=== PATIENT | female | born 1950 ===

== ENCOUNTER 2016-08-28 07:03 | Day surgery (SDC) | payer MEDICARE ==
[2016-08-22 13:15] VITALS: BMI 31.5
[2016-08-28] MEDS ORDERED: Sodium Chloride 0.9% 1,000 ML IV SCH (08:15)
[2016-08-28] MEDS ORDERED: Propofol 10 mg/ml Inj (20 ML) ONE (08:53)
[2016-08-28 10:30] VITALS: BP 136/65; PULSE 53; RESP 18; TEMP 97.6; O2SAT 99
== END 2016-08-28 11:21 | disposition home or self-care (01) ==
LOC: ENDO 07:03
PROVIDERS: ATTEND Specialist
DX: K29.50 Unspecified chronic gastritis without bleeding (principal); B96.81 Helicobacter pylori [H. pylori] as the cause of diseases classified elsewhere; K57.30 Diverticulosis of large intestine without perforation or abscess without bleeding; K64.8 Other hemorrhoids; K44.9 Diaphragmatic hernia without obstruction or gangrene
CPT/HCPCS: 43239; 45378; 88305; 88342; J2001; J2704; J3010; J7040 ×2

== ENCOUNTER 2017-02-27 15:24 | Emergency (ER) | payer MEDICARE ==
[2017-02-27 15:49] VITALS: BMI 22.6
[2017-02-27] MEDS ORDERED: Sodium Chloride 0.9% 1,000 ML IV STA (16:30)
[2017-02-27] MEDS ORDERED: Morphine 4 mg/ml ISec IVP STA (16:30)
--- NOTE | 2017-02-27 16:36 | ED PDOC ---
Arrival/HPI - General Chief Complaint: Abdominal Pain Time Seen by Provider: 02/27/17 16:29 Historian: Patient - History of Present Illness Narrative History of Present Illness (Text): 02/27/17 16:33 This 66 yo female with pmh dm, htn, hypelipedemia, hypothyroidism, presents to this ED c/o diarrhea x 14 hours. Patient stated she has had multiple watery BM. She feels over ten time. Last BM was in ED. Patient noted nausea and vomiting at the onset of diarrhea. N/V has improved. Patient noted family members had similar symptoms last week. Patient denies sob, cp, urinary symptoms, CROOK, diplopia, dysarthria, or abnormal gait. Time/Duration: Other (see hpi) Context: Home Past Medical History - Provider Review Nursing Documentation Reviewed: Yes - Infectious Disease Hx of Infectious Diseases: None - Reproductive Menopause: Yes - Cardiac Hx Cardiac Disorders: Yes Hx Hypertension: Yes - Pulmonary Hx Respiratory Disorders: No - Neurological Hx Neurological Disorder: No HX Cerebrovascular Accident: Yes (07/20/15) - HEENT Hx HEENT Disorder: No - Renal Hx Renal Disorder: No - Endocrine/Metabolic Hx Diabetes Mellitus Type 2: Yes Hx Hypothyroidism: Yes - Hematological/Oncological Hx Blood Transfusions: No - Integumentary Hx Dermatological Disorder: No - Musculoskeletal/Rheumatological Hx Musculoskeletal Disorders: Yes - Gastrointestinal Hx Gastrointestinal Disorders: No - Genitourinary/Gynecological Hx Genitourinary Disorders: No - Psychiatric Hx Emotional Abuse: No Hx Physical Abuse: No Hx Substance Use: No - Surgical History Hx Cholecystectomy: Yes - Anesthesia Hx Anesthesia: Yes Hx Anesthesia Reactions: No Hx Malignant Hyperthermia: No - Suicidal Assessment Feels Threatened In Home Enviroment: No Family/Social History - Physician Review Nursing Documentation Reviewed: Yes Family/Social History: Other (noncontributory) Smoking Status: Never Smoked Hx Alcohol Use: No Hx Substance Use: No Allergies/Home Meds Allergies/Adverse Reactions: Allergies No Known Allergies Allergy (Verified 02/27/17 15:49) Home Medications: Home Meds Medication Instructions Recorded Confirmed Losartan [Cozaar] 50 mg PO DAILY 07/16/15 02/27/17 Simvastatin 20 mg PO DAILY 11/21/15 02/27/17 Aspirin [Ecotrin] 81 mg PO DAILY 11/23/15 02/27/17 Glyburide [Micronase] 1 mg PO DAILY 11/23/15 02/27/17 MetFORMIN [glucoPHAGE] 1,000 mg PO BID 11/23/15 02/27/17 Levothyroxine [Synthroid] 0.088 mg PO DAILY 08/22/16 02/27/17 Pyridoxine HCl (Vitamin B6) 100 mg PO DAILY 08/22/16 02/27/17 [Vitamin B-6] Zonisamide [Zonegran] 100 mg PO HS 08/22/16 02/27/17 clonazePAM [clonAZEPAM] 0.5 mg PO TID 08/22/16 02/27/17 Review of Systems - Review of Systems Constitutional: Normal. absent: Fatigue, Weight Change, Fevers Eyes: Normal ENT: Normal. absent: Sore Throat Respiratory: Normal. absent: SOB, Cough Cardiovascular: Normal. absent: Chest Pain, Palpitations Gastrointestinal: Abdominal Pain, Diarrhea, Nausea, Vomiting, Other (denies rectal bleeding). absent: Constipation Genitourinary Female: Normal. absent: Dysuria, Frequency, Hematuria Musculoskeletal: Normal. absent: Back Pain, Neck Pain, Myalgias Skin: Normal. absent: Rash Neurological: Normal. absent: Headache, Dizziness, Focal Weakness, Gait Changes , Speech Changes, Facial Droop, Disequilibrium, Seizure Endocrine: Normal Hemo/Lymphatic: Normal Psychiatric: Normal Physical Exam Vital Signs Temp Pulse Resp BP Pulse Ox 02/27/17 20:40 74 18 141/72 97 02/27/17 19:10 81 18 138/71 100 02/27/17 17:47 99.2 F 89 18 142/75 97 02/27/17 15:43 100.5 F H 97 H 20 146/84 97 Temperature: Afebrile Blood Pressure: Normal Pulse: Regular Respiratory Rate: Normal Appearance: Positive for: Well-Appearing, Non-Toxic, Comfortable Pain Distress: None Mental Status: Positive for: Alert and Oriented X 3 - Systems Exam Head: Present: Atraumatic, Normocephalic Pupils: Present: PERRL Extroacular Muscles: Present: EOMI Conjunctiva: Present: Normal Mouth: Present: Moist Mucous Membranes Neck: Present: Normal Range of Motion Respiratory/Chest: Present: Clear to Auscultation, Good Air Exchange. No: Respiratory Distress, Accessory Muscle Use Cardiovascular: Present: Regular Rate and Rhythm, Normal S1, S2. No: Murmurs Abdomen: Present: Normal Bowel Sounds, Scars (from cholecystectomy). No: Tenderness, Distention, Peritoneal Signs, Rebound, Guarding Back: Present: Normal Inspection. No: CVA Tenderness Upper Extremity: Present: Normal Inspection, Normal ROM, NORMAL PULSES. No: Cyanosis, Edema Lower Extremity: Present: Normal Inspection, Normal ROM. No: Edema Neurological: Present: GCS=15, CN II-XII Intact, Speech Normal, Motor Func Grossly Intact, Normal Sensory Function, Normal Cerebellar Funct Skin: Present: Warm, Dry, Normal Color. No: Rashes Psychiatric: Present: Alert, Oriented x 3, Normal Insight, Normal Concentration Medical Decision Making ED Course and Treatment: 02/27/17 20:59 I spoke with Esther Wesley regarding patient complains of diarrhea. We reviewed labs, CT scan imaging result. I told her that DR. Parra requested to be called if patient is discharge , so he could see patient tomorrow morning. I told Dr. Laguerre that patient is feeling better, and patient wishes to be discharged home soon. Patient stated she has an appointment to see Dr. Parra tomorrow morning. I reviewed case with Dr. Dumont ED physician . She reviewed CT scan result, labs, and VS. Patient feels better. She agreed with plan to d/c patient home , and to see her PMD tomorrow morning, and to return to ED if symptoms worsen. She did not recommend ABX at this time till evaluated by Dr. Parra tomorrow. Re-evaluation Time: 21:08 Reassessment Condition: Re-examined, Improved - Lab Interpretations Lab Results: 02/27/17 17:10 02/27/17 17:10 Lab Results 02/27/17 18:45: Influenza Typ A,B (EIA) Negative for flu a/b 02/27/17 17:10: pO2 93 H, VBG pH 7.42, VBG pCO2 41.0, VBG HCO3 26.6, VBG Total CO2 27.9, VBG O2 Sat (Calc) 98.7 H, VBG Base Excess 1.9, VBG Potassium 5.3 H, Sodium 136.0, Chloride 102.0, Glucose 136 H, Lactate 1.7, FiO2 21.0, Venous Blood Potassium 5.3 H 02/27/17 17:10: Sodium 138, Chloride 102, Potassium 3.7, Carbon Dioxide 24, Anion Gap 15, BUN 17, Creatinine 0.7, Est GFR ( Amer) > 60, Est GFR (Non- Af Amer) > 60, Random Glucose 132 H, Calcium 9.0, Total Bilirubin 0.4, AST 26, ALT 30, Alkaline Phosphatase 53, Total Protein 7.0, Albumin 4.2, Globulin 2.8, Albumin/Globulin Ratio 1.5, Lipase 50 02/27/17 17:10: PT 11.4, INR 1.00, APTT 26.0 02/27/17 17:10: WBC 7.3 D, RBC 4.23, Hgb 13.3, Hct 40.8, MCV 96.5, MCH 31.4, MCHC 32.6, RDW 13.4, Plt Count 190, MPV 12.2 H, Gran % 86.0 H, Lymph % (Auto) 10.0 L, [place] % (Auto) 3.1, Eos % (Auto) 0.8 L, Baso % (Auto) 0.1, Gran # 6.30, Lymph # 0.7 L, [place] # 0.2, Eos # 0.1, Baso # 0.01 02/27/17 16:55: Urine Color Yellow, Urine Appearance Sl cloudy, Urine pH 6.0, Ur Specific [place] 1.025, Urine Protein Trace H, Urine Glucose (UA) Negative, Urine Ketones Negative, Urine Blood Negative, Urine Nitrate Negative, Urine Bilirubin Negative, Urine Urobilinogen 0.2, Ur Leukocyte Esterase Trace H, Urine RBC 0 - 2, Urine WBC 1 - 3, Ur Epithelial Cells 3 - 4, Urine Bacteria Small I have reviewed the lab results: Yes Interpretation: No clinic. lab abnormalty - RAD Interpretation Narrative RAD Interpretations (Text): 02/27/17 20:45 [facility] Division of Radiology [address] [address] Tel. no. Patient Name: VICKI GAXIOLA Pt. Address: [address] [place] [address] Rec #: [id number] [place] [address]: Delbert DEE,Marleni Cochran Pt Order Location: ED : 1950 Female Age: 66 Order #: [id number] Reason for exam: abdominal pain CT Scan ABD PELVIS IV CONTRAST ONLY Exam Date: 02/27/17 This imaging exam was performed at [facility] EXAM: CT Abdomen and Pelvis With Intravenous Contrast EXAM DATE/TIME: 02/27/2017 4:31 PM CLINICAL HISTORY: 66 years old, female; Pain; Abdominal pain TECHNIQUE: Axial computed tomography images of the abdomen and pelvis with intravenous contrast. All CT scans at this facility use one or more dose reduction techniques, viz.: automated exposure control; ma/kV adjustment per patient size (including targeted exams where dose is matched to indication; i.e. head); or iterative reconstruction technique. Coronal and sagittal reformatted images were created and reviewed. CONTRAST: 93 mL of OMNI 350 administered intravenously. COMPARISON: CT - CHEST,ABD,PEL W/IV PO CONTRAST 2016-06-14 09:59 FINDINGS: Lower thorax: Heart size is normal. There is minimal dependent atelectasis at the lung bases ABDOMEN: Liver: There is fatty infiltration of the liver. Gallbladder and bile ducts: Gallbladder is absent.There is prominence of the common duct. Pancreas: unremarkable Spleen: unremarkable Adrenals: unremarkable Kidneys and ureters: There is a right renal cyst. Kidneys and ureters are otherwise unremarkable. Stomach and bowel: Stomach is partially distended with air-fluid levels. Rotation is normal. Small bowel is mildly dilated and fluid-filled. There is fluid throughout the small bowel. Terminal ileum is distended with fluid. Normal caliber appendix is filled with air. There is moderate stool and air in the colon. There is sigmoid diverticulosis. Appendix: See stomach and bowel PELVIS: Bladder: Bladder is almost completely empty. There is mild bladder wall thickening Reproductive: Uterus and adnexal structures are unremarkable. ABDOMEN and PELVIS: Intraperitoneal space: There is no free air or free fluid. Bones/joints: There are degenerative changes in the osseus structures. Soft tissues: There is a small fat containing umbilical hernia. Vasculature: There are vascular calcifications. Lymph nodes: There is no pathologic adenopathy. IMPRESSION: Fatty liver, no acute solid visceral abnormality; prominent common duct status post cholecystectomy; mildly distended fluid-filled small bowel suggesting ileus or possible enteritis, no obstruction; no CT findings of appendicitis or diverticulitis; mild bladder wall thickening underdistention versus inflammation Additional nonemergent findings as described above. Dictated By: Martita Simpson MD, MD Radiology Orders: 02/27/17 16:31 ABD & PELVIS IV CONTRAST ONLY [CT] Stat - Medication Orders Current Medication Orders: Discontinued Medications Acetaminophen (Tylenol 325mg Tab) 975 mg PO STAT STA Stop: 02/27/17 16:33 Last Admin: 02/27/17 17:28 Dose: 975 mg MAR Pain/Vitals Document 02/27/17 17:28 SF (Rec: 02/27/17 17:28 [place] [id number] Pain Reassessment Is This A Pain ReAssessment? Yes Sleep Is patient sleeping during reassessment? No Presence of Pain Presence of Pain Yes Famotidine (Pepcid) 20 mg IVP STAT STA Stop: 02/27/17 16:31 Last Admin: 02/27/17 17:28 Dose: 20 mg IVP Administration Document 02/27/17 17:28 SF (Rec: 02/27/17 17:28 SF [id number][place] Charges for Administration # of IVP Administrations 1 Sodium Chloride (Sodium Chloride 0.9%) 1,000 mls @ 1,000 mls/hr IV .Q1H STA Stop: 02/27/17 17:29 Last Admin: 02/27/17 17:28 Dose: 1,000 mls/hr eMAR Start Stop Document 02/27/17 17:28 SF (Rec: 02/27/17 17:28 SF [id number][place] Intravenous Solution Start Date 02/27/17 Start Time 17:28 End Date 02/27/17 End time 18:28 Total Infusion Time 60 Morphine Sulfate (Morphine) 4 mg IVP STAT STA Stop: 02/27/17 16:31 Last Admin: 02/27/17 17:29 Dose: 4 mg MAR Pain Assessment Document 02/27/17 17:29 SF (Rec: 02/27/17 17:29 SF [id number][place] Pain Reassessment Is this a pain reassessment? Yes Sleep Is patient sleeping during reassessment? No Presence of Pain Presence of Pain Yes Description Description Constant IVP Administration Document 02/27/17 17:29 SF (Rec: 02/27/17 17:29 SF [id number][place] Charges for Administration # of IVP Administrations 1 Ondansetron HCl (Zofran Inj) 4 mg IVP STAT STA Stop: 02/27/17 16:31 Last Admin: 02/27/17 17:28 Dose: 4 mg IVP Administration Document 02/27/17 17:28 SF (Rec: 02/27/17 17:28 SF [id number]) Charges for Administration # of IVP Administrations 1 Disposition/Present on Arrival - Present on Arrival Any Indicators Present on Arrival: No History of DVT/PE: No History of Uncontrolled Diabetes: No Urinary Catheter: No History of Decub. Ulcer: No History Surgical Site Infection Following: None - Disposition Have Diagnosis and Disposition been Completed?: Yes Diagnosis: Enteritis, Diarrhea, Abdominal pain Disposition: HOME/ ROUTINE Disposition Time: 21:08 Patient Plan: Discharge Condition: GOOD Discharge Instructions (ExitCare): Acute Diarrhea (ED) Additional Instructions: Call private doctor for follow up visit in 1-2 days. Drink Pedialyte for hydration. Take medication for pain as instructed. Return to emergency if symptoms worsen. Prescriptions: Acetaminophen with Codeine [Tylenol with Codeine #3 Tablet] 1 each PO Q6H PRN # 10 tablet PRN Reason: Pain, Severe (8-10) Famotidine [Pepcid] 40 mg PO DAILY #10 tablet Referrals: Tru Parra MD [Primary Care Provider] - Follow up with primary Forms: [employer] (Tristanian)
[2017-02-27 17:21] LABS: URINE BILIRUBIN NEGATIVE (NEGATIVE); URINE BLOOD NEGATIVE (NEGATIVE); URINE GLUCOSE (UA) NEGATIVE (NEGATIVE); URINE LEUKOCYTE ESTERASE TRACE Leu/uL (NEGATIVE); URINE NITRATE NEGATIVE (NEGATIVE); URINE PROTEIN TRACE mg/dL (<30 mg/dL); URINE UROBILINOGEN 0.2 E.U./dL (<1 E.U./dL)
[2017-02-27 17:32] LABS: URINE APPEARANCE SL CLOUDY (CLEAR); URINE COLOR YELLOW (YELLOW)
[2017-02-27 17:40] LABS: URINE BACTERIA SMALL (NEG); URINE RBC 0 - 2 /hpf (0-2)
[2017-02-27 17:48] VITALS: TEMP 99.2
[2017-02-27 17:57] LABS: BASO # 0.01 K/mm3 (0.0-2.0); BASO % 0.1 % (0.0-3.0); EOS # 0.1 (0.0-0.7); EOS % 0.8 % (1.5-5.0); GRAN # 6.3 (1.4-6.5); HEMOGLOBIN 13.3 g/dL (12.0-16.0); LYMPH # 0.7 (1.2-3.4); MEAN CELL VOLUME 96.5 fl (80.0-105.0); MEAN CORPUSCULAR HEMOGLOBIN 31.4 pg (25.0-35.0); MEAN CORPUSCULAR HGB CONC 32.6 g/dl (31.0-37.0); MEAN PLATELET VOLUME 12.2 fl (7.0-11.0); MONO # 0.2 (0.1-0.6); MONO % 3.1 % (1.0-6.0); RBC 4.23 10^6/uL (3.5-6.1); RED CELL DISTRIBUTION WIDTH 13.4 % (11.5-14.5); WHITE BLOOD COUNT 7.3 10^3/ul (4.5-11.0)
[2017-02-27 17:58] LABS: VENOUS BLOOD GAS BASE EXCESS 1.9 mmol/L (0.0-2.0); VENOUS BLOOD GAS PO2 93 mm/Hg (30-55); VENOUS BLOOD PH 7.42 (7.32-7.43)
[2017-02-27 18:09] LABS: ALB/GLOB RATIO 1.5 (1.1-1.8); ALBUMIN 4.2 g/dL (3.0-4.8); ALT/SGPT 30 U/L (7-56); AST/SGOT 26 U/L (14-36); BLOOD UREA NITROGEN 17 mg/dL (7-21); GFR AFRICAN-AMERICAN > 60; GFR NON-AFRICAN AMERICAN > 60; LIPASE 50 U/L (23-300)
[2017-02-27 18:26] LABS: PROTHROMBIN TIME 11.4 SECONDS (9.4-12.5)
[2017-02-27] MEDS ORDERED: Iohexol 350 MG/100 ML VIAL ONE (19:08)
--- NOTE | 2017-02-27 20:25 | CT ---
EXAM: CT Abdomen and Pelvis With Intravenous Contrast EXAM DATE/TIME: 02/27/2017 4:31 PM CLINICAL HISTORY: 66 years old, female; Pain; Abdominal pain TECHNIQUE: Axial computed tomography images of the abdomen and pelvis with intravenous contrast. All CT scans at this facility use one or more dose reduction techniques, viz.: automated exposure control; ma/kV adjustment per patient size (including targeted exams where dose is matched to indication; i.e. head); or iterative reconstruction technique. Coronal and sagittal reformatted images were created and reviewed. CONTRAST: 93 mL of OMNI 350 administered intravenously. COMPARISON: CT - CHEST,ABD,PEL W/IV PO CONTRAST 2016-06-14 09:59 FINDINGS: Lower thorax: Heart size is normal. There is minimal dependent atelectasis at the lung bases ABDOMEN: Liver: There is fatty infiltration of the liver. Gallbladder and bile ducts: Gallbladder is absent.There is prominence of the common duct. Pancreas: unremarkable Spleen: unremarkable Adrenals: unremarkable Kidneys and ureters: There is a right renal cyst. Kidneys and ureters are otherwise unremarkable. Stomach and bowel: Stomach is partially distended with air-fluid levels. Rotation is normal. Small bowel is mildly dilated and fluid-filled. There is fluid throughout the small bowel. Terminal ileum is distended with fluid. Normal caliber appendix is filled with air. There is moderate stool and air in the colon. There is sigmoid diverticulosis. Appendix: See stomach and bowel PELVIS: Bladder: Bladder is almost completely empty. There is mild bladder wall thickening Reproductive: Uterus and adnexal structures are unremarkable. ABDOMEN and PELVIS: Intraperitoneal space: There is no free air or free fluid. Bones/joints: There are degenerative changes in the osseus structures. Soft tissues: There is a small fat containing umbilical hernia. Vasculature: There are vascular calcifications. Lymph nodes: There is no pathologic adenopathy. IMPRESSION: Fatty liver, no acute solid visceral abnormality; prominent common duct status post cholecystectomy; mildly distended fluid-filled small bowel suggesting ileus or possible enteritis, no obstruction; no CT findings of appendicitis or diverticulitis; mild bladder wall thickening underdistention versus inflammation Additional nonemergent findings as described above.
[2017-02-27 22:03] VITALS: BP 135/70; PULSE 68; RESP 17; O2SAT 98
== END 2017-02-27 21:45 | disposition home or self-care (01) ==
LOC: ED 15:24
DX: K52.9 Noninfective gastroenteritis and colitis, unspecified (principal); E11.9 Type 2 diabetes mellitus without complications; I10 Essential (primary) hypertension; E03.9 Hypothyroidism, unspecified
CPT/HCPCS: 74177; 80053; 81001; 82803; 83690; 85025; 85610; 85730; 87040; 87086; 87804; 96361; 96374; 96375; 99285; J2270; J2405; J7040; Q9967

== ENCOUNTER 2017-03-01 16:16 | Emergency (ER) | payer MEDICARE ==
[2017-03-01 16:17] VITALS: BMI 22.6
[2017-03-01 16:36] VITALS: RESP 18; TEMP 98.4
[2017-03-01] MEDS ORDERED: Sodium Chloride 0.9% 500 ML IV STA (16:51)
[2017-03-01 17:25] LABS: BASO # 0.01 K/mm3 (0.0-2.0); BASO % 0.3 % (0.0-3.0); EOS # 0.1 (0.0-0.7); EOS % 1.3 % (1.5-5.0); GRAN # 2.35 (1.4-6.5); GRAN % 60.3 % (50.0-68.0); HEMOGLOBIN 12.4 g/dL (12.0-16.0); LYMPH % 25.2 % (22.0-35.0); MEAN CORPUSCULAR HEMOGLOBIN 31.2 pg (25.0-35.0); MEAN CORPUSCULAR HGB CONC 31.9 g/dl (31.0-37.0); MEAN PLATELET VOLUME 11.9 fl (7.0-11.0); MONO # 0.5 (0.1-0.6); MONO % 12.9 % (1.0-6.0); RBC 3.97 10^6/uL (3.5-6.1); RED CELL DISTRIBUTION WIDTH 13.2 % (11.5-14.5); WHITE BLOOD COUNT 3.9 10^3/ul (4.5-11.0)
[2017-03-01 17:35] LABS: BLOOD UREA NITROGEN 7 mg/dL (7-21); GFR AFRICAN-AMERICAN > 60; GFR NON-AFRICAN AMERICAN > 60
--- NOTE | 2017-03-01 19:48 | ED PDOC ---
Arrival/HPI - General Chief Complaint: Dizziness/Lightheaded Time Seen by Provider: 03/01/17 16:32 Historian: Patient - History of Present Illness Narrative History of Present Illness (Text): 03/01/17 18:14 A 66 year old female, whose past medical history includes hypertension, diabetes , hyperlipidemia, and hypothyroidism, presents to the emergency department complaining of persistent dizziness for 3-4 days. Patient reports being treated for excessive diarrhea 2 days ago, which has resolved but dizziness persisted. Patient denies any nausea, vomiting, headache, or any other complaints. Also, patient has social history of living at home and does not smoke nor consumes alcohol. No PMD Past Medical History - Provider Review Nursing Documentation Reviewed: Yes - Infectious Disease Hx of Infectious Diseases: None - Cardiac Hx Cardiac Disorders: Yes Hx Hypertension: Yes - Pulmonary Hx Respiratory Disorders: No - Neurological Hx Neurological Disorder: No HX Cerebrovascular Accident: Yes (07/20/15) - HEENT Hx HEENT Disorder: No - Renal Hx Renal Disorder: No - Endocrine/Metabolic Hx Diabetes Mellitus Type 2: Yes Hx Hypothyroidism: Yes - Hematological/Oncological Hx Blood Transfusions: No - Integumentary Hx Dermatological Disorder: No - Musculoskeletal/Rheumatological Hx Musculoskeletal Disorders: Yes - Gastrointestinal Hx Gastrointestinal Disorders: No - Genitourinary/Gynecological Hx Genitourinary Disorders: No - Psychiatric Hx Emotional Abuse: No Hx Physical Abuse: No Hx Substance Use: No - Surgical History Hx Cholecystectomy: Yes - Anesthesia Hx Anesthesia: Yes Hx Anesthesia Reactions: No Hx Malignant Hyperthermia: No - Suicidal Assessment Feels Threatened In Home Enviroment: No Family/Social History - Physician Review Nursing Documentation Reviewed: Yes Family/Social History: No Known Family HX Smoking Status: Never Smoked Hx Alcohol Use: No Hx Substance Use: No Allergies/Home Meds Allergies/Adverse Reactions: Allergies No Known Allergies Allergy (Verified 03/01/17 16:34) Home Medications: Home Meds Medication Instructions Recorded Confirmed Losartan [Cozaar] 50 mg PO DAILY 07/16/15 03/01/17 Simvastatin 20 mg PO DAILY 11/21/15 03/01/17 Aspirin [Ecotrin] 81 mg PO DAILY 11/23/15 03/01/17 Glyburide [Micronase] 1 mg PO DAILY 11/23/15 03/01/17 MetFORMIN [glucoPHAGE] 1,000 mg PO BID 11/23/15 03/01/17 Levothyroxine [Synthroid] 0.088 mg PO DAILY 08/22/16 03/01/17 Pyridoxine HCl (Vitamin B6) 100 mg PO DAILY 08/22/16 03/01/17 [Vitamin B-6] Zonisamide [Zonegran] 100 mg PO HS 08/22/16 03/01/17 clonazePAM [clonAZEPAM] 0.5 mg PO TID 08/22/16 03/01/17 Review of Systems - Physician Review All systems were reviewed & negative as marked: Yes - Review of Systems Gastrointestinal: absent: Nausea, Vomiting Neurological: Dizziness. absent: Headache Physical Exam Vital Signs Reviewed: Yes Vital Signs Temp Pulse Resp BP Pulse Ox 03/01/17 16:34 98.4 F 79 18 169/80 H 97 Temperature: Afebrile Blood Pressure: Hypertensive Pulse: Regular Respiratory Rate: Normal Appearance: Positive for: Well-Appearing Pain Distress: None Mental Status: Positive for: Alert and Oriented X 3 - Systems Exam Head: Present: Atraumatic, Normocephalic Pupils: Present: PERRL Extroacular Muscles: Present: EOMI Conjunctiva: Present: Normal Mouth: Present: Moist Mucous Membranes Neck: Present: Normal Range of Motion Respiratory/Chest: Present: Clear to Auscultation, Good Air Exchange. No: Respiratory Distress, Accessory Muscle Use Cardiovascular: Present: Regular Rate and Rhythm, Normal S1, S2. No: Murmurs Abdomen: Present: Normal Bowel Sounds. No: Tenderness, Distention, Peritoneal Signs Back: Present: Normal Inspection Upper Extremity: Present: Normal Inspection. No: Cyanosis, Edema Lower Extremity: Present: Normal Inspection. No: Edema Neurological: Present: GCS=15, CN II-XII Intact, Speech Normal, Other (no neurological focal deficits; no ataxia) Skin: Present: Warm, Dry, Normal Color. No: Rashes Psychiatric: Present: Alert, Oriented x 3, Normal Insight, Normal Concentration Medical Decision Making ED Course and Treatment: 03/01/17 18:17 Impression: 66 year old female with persistent dizziness. Plan: -- EKG -- Head CT -- Labs -- Antivert -- IV Fluids -- Reassess and disposition Prior Visits: Notes and results from previous visits were reviewed. Patient was last seen in the emergency department on 02/27/2017 for diarrhea. Patient was d/c home. Progress Notes: 03/01/2017 21:[address] FINDINGS: Brain: Bilateral white matter hypoattenuation most consistent with chornic ischemic small vessel. Changes. Right parieto-occipital. No hemorrhage. No edema. Ventricles: No hydrocephalus. Bones: Skull is intact. Sinuses: Mild right sphenoid sinus disease. Mastoid air cells: No mastoid effusion. IMPRESSION: No CT evidence of acute intracranial abnormality. Chronis changes as above. Dictator: Mai Romo MD - Lab Interpretations Lab Results: 03/01/17 17:10 03/01/17 17:10 Lab Results 03/01/17 17:10: Sodium 144, Potassium 4.0, Chloride 108 H, Carbon Dioxide 26, Anion Gap 14, BUN 7, Creatinine 0.6 L, Est GFR ( Amer) > 60, Est GFR (Non -Af Amer) > 60, Random Glucose 141 H, Calcium 9.0 03/01/17 17:10: WBC 3.9 L D, RBC 3.97, Hgb 12.4, Hct 38.9, MCV 98.0, MCH 31.2, MCHC 31.9, RDW 13.2, Plt Count 171, MPV 11.9 H, Gran % 60.3, Lymph % (Auto) 25.2 , [place] % (Auto) 12.9 H, Eos % (Auto) 1.3 L, Baso % (Auto) 0.3, Gran # 2.35, Lymph # 1.0 L, [place] # 0.5, Eos # 0.1, Baso # 0.01 I have reviewed the lab results: Yes - RAD Interpretation Radiology Orders: 03/01/17 18:45 HEAD W/O CONTRAST [CT] Stat - Medication Orders Current Medication Orders: Amoxicillin/Clavulanate Potassium (Augmentin 875 Mg-125 Mg Tab) 1 tab PO STAT STA PRN Reason: Protocol Stop: 03/01/17 21:23 Discontinued Medications Sodium Chloride (Sodium Chloride 0.9%) 500 mls @ 999 mls/hr IV .Q31M STA Stop: 03/01/17 17:21 Last Admin: 03/01/17 17:14 Dose: 999 mls/hr eMAR Start Stop Document 03/01/17 17:14 HI (Rec: 03/01/17 17:14 DC [id number]) Intravenous Solution Start Date 03/01/17 Start Time 17:14 Meclizine HCl (Antivert) 25 mg PO STAT STA Stop: 03/01/17 18:47 Last Admin: 03/01/17 19:07 Dose: 25 mg - Scribe Statement The provider has reviewed the documentation as recorded by the Finn Durbin Provider Scribe Attestation: All medical record entries made by the Scribe were at my direction and personally dictated by me. I have reviewed the chart and agree that the record accurately reflects my personal performance of the history, physical exam, medical decision making, and the department course for this patient. I have also personally directed, reviewed, and agree with the discharge instructions and disposition. Disposition/Present on Arrival - Present on Arrival Any Indicators Present on Arrival: No History of DVT/PE: No History of Uncontrolled Diabetes: No Urinary Catheter: No History of Decub. Ulcer: No History Surgical Site Infection Following: None - Disposition Have Diagnosis and Disposition been Completed?: Yes Diagnosis: Dizziness, Sinusitis Disposition: HOME/ ROUTINE Disposition Time: 21:30 Condition: STABLE Prescriptions: Amoxicillin/Clavulanate [Augmentin 875 MG-125 MG] 1 tab PO BID #14 tab Referrals: Manisha Díaz, [Primary Care Provider] - Follow up with primary Forms: [employer] (Serbian)
--- NOTE | 2017-03-01 21:07 | CT ---
EXAM: CT Head Without Intravenous Contrast CLINICAL HISTORY: 66 years old, female; Signs and symptoms; Dizziness; Additional info: Dizzy TECHNIQUE: Axial computed tomography images of the head/brain without intravenous contrast. All CT scans at this facility use one or more dose reduction techniques, viz.: automated exposure control; ma/kV adjustment per patient size (including targeted exams where dose is matched to indication; i.e. head); or iterative reconstruction technique. Coronal and sagittal reformatted images were created and reviewed. COMPARISON: CT - HEAD W/O CONTRAST 2015-11-21 14:43 FINDINGS: Brain: Bilateral white matter hypoattenuation most consistent with chronic ischemic small vessel changes. Right parieto-occipital encephalomalacia. No hemorrhage. No edema. Ventricles: No hydrocephalus. Bones: Skull is intact. Sinuses: Mild right sphenoid sinus disease. Mastoid air cells: No mastoid effusion. IMPRESSION: No CT evidence of acute intracranial abnormality. Chronic changes as above.
[2017-03-01] MEDS ORDERED: Amoxicillin-Clav 875-125 mg Tab PO STA (21:22)
[2017-03-01 21:47] VITALS: BP 136/71; PULSE 77; O2SAT 99
--- NOTE | 2017-03-02 20:54 | CARD ---
APPROVED REPORT EKG Measurement Heart [id number] <Conclusion> Normal sinus rhythm Inferior infarct, age undetermined Abnormal ECG
== END 2017-03-01 21:47 | disposition home or self-care (01) ==
LOC: ED 16:16
DX: R42 Dizziness and giddiness (principal); J32.9 Chronic sinusitis, unspecified; I10 Essential (primary) hypertension; E11.9 Type 2 diabetes mellitus without complications
CPT/HCPCS: 70450; 80048; 85025; 93005; 99285; J7040

== ENCOUNTER 2018-03-13 10:39 | Outpatient (CLI) | payer MEDICARE | END 2018-03-13 10:40 | disposition home or self-care (01) | LOC: RAD 10:39 ==

== ENCOUNTER 2018-03-26 14:43 | Observation (INO) | payer MEDICARE, OTHER ==
[2018-03-26 15:39] VITALS: BMI 22.4
--- NOTE | 2018-03-26 15:40 | ED PDOC ---
Arrival/HPI - General Time Seen by Provider: 03/26/18 14:45 Historian: Patient, Spouse - History of Present Illness Narrative History of Present Illness (Text): 03/26/18 15:58 67 year old female, on Plavix, whose past medical history includes vertigo, hyp ertension, stroke (2015 &2018) diabetes, hyperlipidemia, and hypothyroidism, presents to the emergency department complaining of dizziness for the past day. Patient states that she is experiencing dizziness that worsens with movement and feels off balanced. She also reports secondary cough, wheezing, and sore throat for the past 3 days. Of note, patient has experienced vertigo in the past that developed from a URI, the presenting similar feels similar. She denies dysuria, fevers, chills, headache, shortness of breath, dyspnea on exertion, abdominal pain, nausea, vomiting, diarrhea, back pain, neck pain, or any other complaint. PMD: DR. Parra Time/Duration: 24 hours Symptom Onset: Gradual Symptom Course: Unchanged Activities at Onset: Light Context: Home Past Medical History - Provider Review Nursing Documentation Reviewed: Yes - Infectious Disease Hx of Infectious Diseases: None - Cardiac Hx Cardiac Disorders: Yes Hx Hypertension: Yes - Pulmonary Hx Respiratory Disorders: No - Neurological Hx Neurological Disorder: No HX Cerebrovascular Accident: Yes (07/20/15) - HEENT Hx HEENT Disorder: No - Renal Hx Renal Disorder: No - Endocrine/Metabolic Hx Diabetes Mellitus Type 2: Yes Hx Hypothyroidism: Yes - Hematological/Oncological Hx Blood Transfusions: No - Integumentary Hx Dermatological Disorder: No - Musculoskeletal/Rheumatological Hx Musculoskeletal Disorders: Yes - Gastrointestinal Hx Gastrointestinal Disorders: No - Genitourinary/Gynecological Hx Genitourinary Disorders: No - Psychiatric Hx Emotional Abuse: No Hx Physical Abuse: No Hx Substance Use: No - Surgical History Hx Cholecystectomy: Yes - Anesthesia Hx Anesthesia: Yes Hx Anesthesia Reactions: No Hx Malignant Hyperthermia: No - Suicidal Assessment Feels Threatened In Home Enviroment: No Family/Social History - Physician Review Nursing Documentation Reviewed: Yes Family/Social History: No Known Family HX Smoking Status: Never Smoked Hx Alcohol Use: No Hx Substance Use: No Allergies/Home Meds Allergies/Adverse Reactions: Allergies No Known Allergies Allergy (Verified 03/01/17 16:34) Home Medications: Home Meds Medication Instructions Recorded Confirmed RX: Losartan [Cozaar] 50 mg PO DAILY 07/16/15 03/01/17 RX: Simvastatin 20 mg PO DAILY 11/21/15 03/01/17 RX: Aspirin [Ecotrin] 81 mg PO DAILY 11/23/15 03/01/17 RX: Glyburide [Micronase] 1 mg PO DAILY 11/23/15 03/01/17 RX: MetFORMIN [glucoPHAGE] 1,000 mg PO BID 11/23/15 03/01/17 Levothyroxine [Synthroid] 0.088 mg PO DAILY 08/22/16 03/01/17 Pyridoxine HCl (Vitamin B6) 100 mg PO DAILY 08/22/16 03/01/17 [Vitamin B-6] Zonisamide [Zonegran] 100 mg PO HS 08/22/16 03/01/17 clonazePAM [clonAZEPAM] 0.5 mg PO TID 08/22/16 03/01/17 Review of Systems - Review of Systems Constitutional: absent: Fevers ENT: Sore Throat Respiratory: Cough, Wheezing. absent: SOB Gastrointestinal: absent: Abdominal Pain, Diarrhea, Nausea, Vomiting Genitourinary Female: absent: Dysuria, Frequency Musculoskeletal: absent: Back Pain, Neck Pain Neurological: Dizziness. absent: Headache Physical Exam Vital Signs Reviewed: Yes Temperature: Afebrile Blood Pressure: Normal Pulse: Regular Respiratory Rate: Normal Appearance: Positive for: Well-Appearing, Non-Toxic, Comfortable Pain Distress: None Mental Status: Positive for: Alert and Oriented X 3 - Systems Exam Head: Present: Atraumatic, Normocephalic Pupils: Present: PERRL Extroacular Muscles: Present: EOMI Conjunctiva: Present: Normal Ears: Present: Normal, NORMAL TM Mouth: Present: Moist Mucous Membranes Neck: Present: Normal Range of Motion Respiratory/Chest: Present: Clear to Auscultation, Good Air Exchange. No: Respiratory Distress, Accessory Muscle Use Cardiovascular: Present: Regular Rate and Rhythm, Normal S1, S2. No: Murmurs Abdomen: No: Tenderness, Distention, Peritoneal Signs Back: Present: Normal Inspection Upper Extremity: Present: Normal Inspection. No: Cyanosis, Edema Lower Extremity: Present: Normal Inspection. No: Edema Neurological: Present: GCS=15, CN II-XII Intact, Speech Normal, Gait Normal (steady gait) Skin: Present: Warm, Dry, Normal Color. No: Rashes Psychiatric: Present: Alert, Oriented x 3, Normal Insight, Normal Concentration Medical Decision Making ED Course and Treatment: 03/26/18 16:07 Impression: 67 year old female who presents to the emergency department complaining of dizziness. Plan: -- Head CT w/o contrast -- Labs -- EKG -- Antivert -- Reassess and disposition Prior Visits: Notes and results from previous visits were reviewed. Progress Notes: 03/26/18 17:45 EKG reviewed by me, shows: NSR at [address]/T changes compared to 03/01/17. Chart reviewed which shows normal stress test on 10/09/17. 03/26/18 18:[address] reviewed by radiologist, shows: IMPRESSION: No acute intracranial abnormalities. No significant findings to account for the clinical presentation. No significant interval change compared to the prior examination(s). 03/26/18 18:47 Patient reports persistent dizziness after meclizine. Ambulating with steady gait. Reports she has follow-up with Yuval Moreno on Friday03/26/18 18:50 MRI from 03/11/17 shows encephalomalacia R occipital and R parietal lobe 03/26/18 19:15 Dr. Moreno called back and requesting 4mg decadron to be given. Reports that if she does not have resolution of dizziness, patient should be admitted. On reevaluation she had no improvement of symptoms. Will observe under hospitalist with Dr. Moreno on consult 03/26/18 19:55 - Lab Interpretations I have reviewed the lab results: Yes - EKG Interpretation Interpreted by ED Physician: Yes Type: 12 lead EKG NIHSS Scale (Hinkle) Time Performed: 19:26 - How Severe is the Stoke Baseline Level of Consciousness: 0=Alert LOC to Questions: 0=Both comments correct LOC to commands: 0=Obeys both correctly Best Gaze: 0=Normal Visual: 0=No visual loss Facial: 0=Normal Motor Arm - Left: 0=No drift Motor Arm - Right: 0=No drift Motor Leg - Left: 0=No drift Motor Leg - Right: 0=No drift Limb Ataxia: 0=Absent Sensory: 0=Normal Best Language: 0=No aphasia Dysarthia: 0=Normal articulation Extinction & Inattention (Neglect): 0=Normal, no object Score: 0 Risk Level: No Stroke Risk rTPA Inclusion/Exclusion - Refusal of Treatment Patient Refused Treatment: No - Inclusion Criteria for Altepase Patient is 18 years or Older: Yes The Clinical Diagnosis of Ischemic Stroke That is Causing a Potentially Disabling Neurological Deficit: No Time of Onset is Well Established to be Less Than 270 Minute Before Treatment Would Begin: No Risk/Benefit Discussed With Patient/Family Member Present: No - Scribe Statement The provider has reviewed the documentation as recorded by the [place] Provider Scribe Attestation: All medical record entries made by the Colletteibbethel were at my direction and personally dictated by me. I have reviewed the chart and agree that the record accurately reflects my personal performance of the history, physical exam, medical decision making, and the department course for this patient. I have also personally directed, reviewed, and agree with the discharge instructions and disposition. Disposition/Present on Arrival - Present on Arrival Any Indicators Present on Arrival: No History of DVT/PE: No History of Uncontrolled Diabetes: No Urinary Catheter: No History Surgical Site Infection Following: None - Disposition Have Diagnosis and Disposition been Completed?: Yes Diagnosis: Dizziness Disposition: HOSPITALIZED Disposition Time: 19:50 Patient Plan: Observation Patient Problems: Current Active Problems Problem Status Onset Dizziness Acute Condition: FAIR Referrals: Tru Parra MD [Primary Care Provider] - Follow up with primary
[2018-03-26 16:17] LABS: BASO # 0.01 K/mm3 (0.0-2.0); BASO % 0.3 % (0.0-3.0); EOS # 0.1 (0.0-0.7); EOS % 1.6 % (1.5-5.0); HEMOGLOBIN 13.5 g/dL (12.0-16.0); LYMPH # 1.5 (1.2-3.4); LYMPH % 40.1 % (22.0-35.0); MEAN CELL VOLUME 95.1 fl (80.0-105.0); MEAN CORPUSCULAR HEMOGLOBIN 31.3 pg (25.0-35.0); MEAN CORPUSCULAR HGB CONC 32.8 g/dl (31.0-37.0); MEAN PLATELET VOLUME 11.3 fl (7.0-11.0); MONO # 0.4 (0.1-0.6); MONO % 10.3 % (1.0-6.0); RBC 4.32 10^6/uL (3.5-6.1); RED CELL DISTRIBUTION WIDTH 12.7 % (11.5-14.5); WHITE BLOOD COUNT 3.8 10^3/uL (4.5-11.0)
[2018-03-26 16:32] LABS: ALB/GLOB RATIO 1.5 (1.1-1.8); ALBUMIN 4.5 g/dL (3.0-4.8); ALT/SGPT 21 U/L (7-56); AST/SGOT 34 U/L (14-36); BLOOD UREA NITROGEN 18 mg/dL (7-21); CALCIUM 9.1 mg/dL (8.4-10.5); GFR NON-AFRICAN AMERICAN > 60
[2018-03-26 16:43] LABS: TROPONIN I < 0.01 ng/mL
--- NOTE | 2018-03-26 18:23 | CT ---
Date of service: 03/26/2018 PROCEDURE: CT HEAD WITHOUT CONTRAST. HISTORY: dizziness, hx of stroke COMPARISON: 03/01/2017 TECHNIQUE: Axial computed tomography images were obtained through the head/brain without intravenous contrast. Supplemental Coronal and Sagittal projections created and reviewed. Radiation dose: Total exam DLP = 740.49 mGy-cm. This CT exam was performed using one or more of the following dose reduction techniques: Automated exposure control, adjustment of the mA and/or kV according to patient size, and/or use of iterative reconstruction technique. FINDINGS: HEMORRHAGE: No intracranial hemorrhage. BRAIN: No mass effect or edema. Stable watershed infarct posterior right parietal occipital region. VENTRICLES: Unremarkable. No hydrocephalus. CALVARIUM: Unremarkable. PARANASAL SINUSES: Unremarkable as visualized. No significant inflammatory changes. MASTOID AIR CELLS: Unremarkable as visualized. No inflammatory changes. OTHER FINDINGS: None. IMPRESSION: No acute intracranial abnormalities. No significant findings to account for the clinical presentation. No significant interval change compared to the prior examination(s).
[2018-03-26] MEDS ORDERED: Dexamethasone 4 mg/1 ml IVP STA (19:13)
[2018-03-26 20:28] LABS: URINE APPEARANCE SLIGHT-CLOUDY (CLEAR); URINE BILIRUBIN NEGATIVE (NEGATIVE); URINE BLOOD NEGATIVE (NEGATIVE); URINE COLOR YELLOW (YELLOW); URINE GLUCOSE (UA) NEGATIVE (NEGATIVE); URINE LEUKOCYTE ESTERASE LARGE Leu/uL (NEGATIVE); URINE PROTEIN NEGATIVE mg/dL (<30 mg/dL); URINE UROBILINOGEN 0.2 E.U./dL (<1 E.U./dL)
[2018-03-26 20:32] LABS: URINE EPITHELIAL CELLS 0 - 2 /hpf (0-5)
--- NOTE | 2018-03-26 21:07 | CP.PCM.HP ---
<Rob Srivastava - Last Filed: 03/26/18 22:19> History of Present Illness - History of Present Illness History of Present Illness: Medicine History and Physical for Hospitalist Service, Dr. Zac Srivastava, DO PGY-1 This is a 67 y o female with PMhx DM2, HLD, hypothyroidism, osteopenia, breast cyst, CVA x2 (most recently in May 2017), RA, who presents with c/o dizziness that has been worsening for the past day. States that she has been having URI symptoms for the past 3 days, including cough, sore throat and wheezing; noted today after she coughed she got dizzy and felt like she was off balance. States this has happened before in the past when she had URI symptoms. Also admits to dizziness when rising up to stand from a seated position. Also reports of hx of vertigo in the past, pt takes Meclizine at home as needed for symptoms. Denies headache, vision changes, chest pain, sob, n/v/d/c, abd pain, urinary complaints, numbness/tingling in extremities, weakness or other symptoms. PMhx: DM2, HLD, hypothyroidism, osteopenia, breast cyst, CVA x2 (most recently in May 2017), RA PSurgHx: cholecystectomy 20-30 y ago, varicose vein stripping Allergies: NKDA Home meds: Ca carbonate 500 mg PO daily, Vit B6 200 mg daily, Metformin 500 mg daily, Irbesartan 75 mg PO daily, Amitriptyline 10 mg PO daily, Crestor 20 mg PO hs, Omeprazole 40 mg daily, Januvia 100 mg PO daily, Synthroid 88 mcg daily Fam hx: Father in MVA at young age, Mom at age 75 with stroke; kids alive and well; siblings diagnosed with heart disease Soc hx: former smoker quit 4 y ago; denies EtOH or illicit drug use; lives at home with family PMD: Dr. Parra Present on Admission - Present on Admission Any Indicators Present on Admission: No History of DVT/PE: No History of Uncontrolled Diabetes: No Urinary Catheter: No Decubitus Ulcer Present: No Review of Systems - Constitutional Constitutional: Fatigue. absent: Chills, Fever, Frequent Falls, Night Sweats - EENT Eyes: absent: Change in Vision Ears: Disequilibrium, Dizziness. absent: Decreased Hearing, Tinnitus Nose/Mouth/Throat: Sore Throat - Cardiovascular Cardiovascular: absent: Chest Pain, Dyspnea on Exertion, Leg Edema, Palpitations - Respiratory Respiratory: Cough, Wheezing. absent: Dyspnea on Exertion, Chest Congestion - Gastrointestinal Gastrointestinal: absent: Abdominal Pain, Change in Stool Character, Constipation, Diarrhea, Nausea, Vomiting - Genitourinary Genitourinary: absent: Change in Urinary Stream, Difficulty Urinating, Dysuria, Urinary Frequency, Urinary Urgency - Neurological Neurological: Disequilibrium, Dizziness. absent: Abnormal Gait, Abnormal Hearing, Abnormal Movements, Confusion, Numbness, Focal Weakness, Frequent Falls, Headaches, Loss of Vision, Paresthesias, Radicular Pain, Sensory Deficit, Tremor, Weakness Past Patient History - Infectious Disease Hx of Infectious Diseases: None - Past Social History Smoking Status: Never Smoked - CARDIAC Hx Cardiac Disorders: Yes Hx Hypertension: Yes - PULMONARY Hx Respiratory Disorders: No - NEUROLOGICAL Hx Neurological Disorder: No HX Cerebrovascular Accident: Yes (07/20/15) - HEENT Hx HEENT Problems: No - RENAL Hx Chronic Kidney Disease: No - ENDOCRINE/METABOLIC Hx Diabetes Mellitus Type 2: Yes Hx Hypothyroidism: Yes - HEMATOLOGICAL/ONCOLOGICAL Hx Blood Transfusions: No - INTEGUMENTARY Hx Dermatological Problems: No - MUSCULOSKELETAL/RHEUMATOLOGICAL Hx Musculoskeletal Disorders: Yes - GASTROINTESTINAL Hx Gastrointestinal Disorders: No - GENITOURINARY/GYNECOLOGICAL Hx Genitourinary Disorders: No - PSYCHIATRIC Hx Emotional Abuse: No Hx Physical Abuse: No Hx Substance Use: No - SURGICAL HISTORY Hx Cholecystectomy: Yes - ANESTHESIA Hx Anesthesia: Yes Hx Anesthesia Reactions: No Hx Malignant Hyperthermia: No Meds Allergies/Adverse Reactions: Allergies Allergy/AdvReac Type Severity Reaction Status Date / Time No Known Allergies Allergy Verified 03/01/17 16:34 Physical Exam - Constitutional Appears: Non-toxic, No Acute Distress - Head Exam Head Exam: ATRAUMATIC, NORMOCEPHALIC - Eye Exam Eye Exam: EOMI, Normal appearance, PERRL - ENT Exam ENT Exam: Mucous Membranes Moist, Normal Oropharynx, TM's Normal Bilaterally - Neck Exam Neck exam: Positive for: Full Rom, Normal Inspection. Negative for: Lymphadenop athy, Tenderness - Respiratory Exam Respiratory Exam: Clear to Auscultation Bilateral, NORMAL BREATHING PATTERN. absent: Rales, Rhonchi, Wheezes - Cardiovascular Exam Cardiovascular Exam: REGULAR RHYTHM, +S1, +S2 - GI/Abdominal Exam GI & Abdominal Exam: Normal Bowel Sounds, Soft. absent: Distended, Guarding, Organomegaly, Rigid, Tenderness - Extremities Exam Extremities exam: Positive for: full ROM, normal capillary refill, normal inspection, pedal pulses present. Negative for: calf tenderness, pedal edema - Back Exam Back exam: FULL ROM, NORMAL INSPECTION. absent: muscle spasm, paraspinal tend erness - Neurological Exam Neurological exam: Alert, CN II-XII Intact, Oriented x3, Reflexes Normal - Expanded Neurological Exam Expanded Speech: Fluid Speech Cranial nerves: EOM's Intact: Normal, Facial Sensation: Normal, Nystagmus: Normal, Tongue Deviation: Normal Cerebellar Function: Finger to Nose: Normal, Heel to Brooks: Normal, Romberg: Normal Sensory exam: Lower Extremity 2 Point Discrimination: Normal, Upper Extremity 2 Point Discrimination: Normal Neuro motor strength exam: Left Upper Extremity: 5, Right Upper Extremity: 5, Left Lower Extremity: 5, Right Lower Extremity: 5 DTR: Patellar Left: 2+, Patellar Right: 2+ Coma Scale Eye Opening: SPONTANEOUS Coma Scale Motor Response: OBEYS COMMANDS Coma Scale Verbal: Oriented Coma Scale Total: 15 - Psychiatric Exam Psychiatric exam: Normal Affect, Normal Mood - Skin Skin Exam: Dry, Intact, Normal Color, Warm Results - Vital Signs Recent Vital Signs: Last Vital Signs Temp 98.6 F 03/26/18 14:43 Pulse 73 03/26/18 19:42 Resp 18 03/26/18 19:42 BP 163/64 H 03/26/18 19:42 Pulse Ox 100 03/26/18 19:42 - Labs Result Diagrams: 03/26/18 16:12 03/26/18 16:12 Labs: Laboratory Results - last 24 hr 03/26/18 03/26/18 03/26/18 15:43 16:12 16:12 WBC 3.8 L RBC 4.32 Hgb 13.5 Hct 41.1 MCV 95.1 MCH 31.3 MCHC 32.8 RDW 12.7 Plt Count 145 MPV 11.3 H Neut % (Auto) 47.7 L Lymph % (Auto) 40.1 H [place] % (Auto) 10.3 H Eos % (Auto) 1.6 Baso % (Auto) 0.3 Lymph # (Auto) 1.5 [place] # (Auto) 0.4 Eos # (Auto) 0.1 Baso # (Auto) 0.01 Absolute Neuts (auto) 1.81 Sodium 140 Potassium 4.4 Chloride 100 Carbon Dioxide 33 Anion Gap 12 BUN 18 Creatinine 0.7 Est GFR ( Amer) > 60 Est GFR (Non-Af Amer) > 60 POC Glucose (mg/dL) 135 H Random Glucose 114 H Calcium 9.1 Phosphorus 4.2 Magnesium 2.1 Total Bilirubin 0.5 AST 34 ALT 21 Alkaline Phosphatase 69 Troponin I < 0.01 Total Protein 7.5 Albumin 4.5 Globulin 3.0 Albumin/Globulin Ratio 1.5 Urine Color Urine Appearance Urine pH Ur Specific [place] Urine Protein Urine Glucose (UA) Urine Ketones Urine Blood Urine Nitrate Urine Bilirubin Urine Urobilinogen Ur Leukocyte Esterase Urine RBC Urine WBC Ur Epithelial Cells 03/26/18 20:21 WBC RBC Hgb Hct MCV MCH MCHC RDW Plt Count MPV Neut % (Auto) Lymph % (Auto) [place] % (Auto) Eos % (Auto) Baso % (Auto) Lymph # (Auto) [place] # (Auto) Eos # (Auto) Baso # (Auto) Absolute Neuts (auto) Sodium Potassium Chloride Carbon Dioxide Anion Gap BUN Creatinine Est GFR ( Amer) Est GFR (Non-Af Amer) POC Glucose (mg/dL) Random Glucose Calcium Phosphorus Magnesium Total Bilirubin AST ALT Alkaline Phosphatase Troponin I Total Protein Albumin Globulin Albumin/Globulin Ratio Urine Color Yellow Urine Appearance Slight-cloudy Urine pH 7.0 Ur Specific [place] 1.010 Urine Protein Negative Urine Glucose (UA) Negative Urine Ketones Negative Urine Blood Negative Urine Nitrate Negative Urine Bilirubin Negative Urine Urobilinogen 0.2 Ur Leukocyte Esterase Large H Urine RBC None Urine WBC 2 - 5 Ur Epithelial Cells 0 - 2 Assessment & Plan - Assessment and Plan (Free Text) Assessment: This is a 67 y o female with PMhx DM2, HLD, hypothyroidism, osteopenia, breast cyst, CVA x2 (most recently in May 2017), RA, who presents with c/o dizziness that has been worsening for the past day. R/o neurogenic, cardiogenic causes, vertigo, labyrinthitis. Plan: Dizziness -Admit to tele -Orthostatic vital signs wnl -CT head: no acute intracranial abnormalities -Prior MRI from 03/11/17 shows encephalomalacia in R occipital and R parietal lobes -Neurology consulted (Dr. Moreno), recs appreciated -Cardiology consulted (Dr. Cheung), recs appreciated -S/p Meclizine and Decadron in ED without improvement in symptoms -Trop neg x1, trops x2 pending -NIHSS scale 0 -Neuro checks q4h -Fall precautions -HHD -EKG on admission NSR at 73 bpm, no acute St-t wave changes -Repeat EKG for tomorrow am to eval interval change -Normal stress test per chart on 10/09/17 -Will hold home med amitriptyline on admission to r/o dizziness 2/2 side effect of medication -PT eval ordered URI symptoms -Robitussin q4h prn for cough -Claritin PO daily Hx CVA x2 -C/w home med Plavix daily -C/w Lipitor 80 mg PO hs -A1c, lipid panel pending Hx HLD -C/w Lipitor daily -Lipid panel pending Hx DM2 -C/w home med Januvia 100 mg daily -Home med Metformin held on admission -ISS: med -Fingersticks achs -Hypoglycemic protocol -A1c pending Hx HTN -C/w Cozaar 25 mg PO daily Hx GERD -C/w home med Protonix daily Hx hypothyroidism -C/w home med Synthroid 88 mcg daily Hx osteopenia -C/w home med Ca carbonate 500 mg daily PPX: Protonix/SCD Pt seen, examined with, and plan discussed with Dr. Frank, attending physician. Rob Srivastava DO PGY-1, Display Designer Pager #[phone] <Sherwin Frank - Last Filed: 03/27/18 05:35> Results - Vital Signs Recent Vital Signs: Last Vital Signs Temp 98.1 F 03/27/18 00:10 Pulse 68 03/27/18 02:00 Resp 18 03/27/18 00:10 BP 158/72 H 03/27/18 00:10 Pulse Ox 100 03/27/18 00:10 - Labs Result Diagrams: 03/27/18 04:10 03/27/18 04:10 Labs: Laboratory Results - last 24 hr 03/26/18 03/26/18 03/26/18 15:43 16:12 16:12 WBC 3.8 L RBC 4.32 Hgb 13.5 Hct 41.1 MCV 95.1 MCH 31.3 MCHC 32.8 RDW 12.7 Plt Count 145 MPV 11.3 H Neut % (Auto) 47.7 L Lymph % (Auto) 40.1 H [place] % (Auto) 10.3 H Eos % (Auto) 1.6 Baso % (Auto) 0.3 Lymph # (Auto) 1.5 [place] # (Auto) 0.4 Eos # (Auto) 0.1 Baso # (Auto) 0.01 Absolute Neuts (auto) 1.81 Sodium 140 Potassium 4.4 Chloride 100 Carbon Dioxide 33 Anion Gap 12 BUN 18 Creatinine 0.7 Est GFR ( Amer) > 60 Est GFR (Non-Af Amer) > 60 POC Glucose (mg/dL) 135 H Random Glucose 114 H Calcium 9.1 Phosphorus 4.2 Magnesium 2.1 Total Bilirubin 0.5 AST 34 ALT 21 Alkaline Phosphatase 69 Troponin I < 0.01 Total Protein 7.5 Albumin 4.5 Globulin 3.0 Albumin/Globulin Ratio 1.5 Triglycerides Cholesterol LDL Cholesterol Direct HDL Cholesterol Urine Color Urine Appearance Urine pH Ur Specific [place] Urine Protein Urine Glucose (UA) Urine Ketones Urine Blood Urine Nitrate Urine Bilirubin Urine Urobilinogen Ur Leukocyte Esterase Urine RBC Urine WBC Ur Epithelial Cells 03/26/18 03/26/18 03/27/18 20:21 23:20 04:10 WBC 2.8 L D RBC 4.37 Hgb 13.6 Hct 41.1 MCV 94.1 MCH 31.1 MCHC 33.1 RDW 12.5 Plt Count 139 MPV 11.5 H Neut % (Auto) 65.7 Lymph % (Auto) 31.8 [place] % (Auto) 2.5 Eos % (Auto) 0.0 L Baso % (Auto) 0.0 Lymph # (Auto) 0.9 L [place] # (Auto) 0.1 Eos # (Auto) 0.0 Baso # (Auto) 0.00 Absolute Neuts (auto) 1.84 Sodium Potassium Chloride Carbon Dioxide Anion Gap BUN Creatinine Est GFR ( Amer) Est GFR (Non-Af Amer) POC Glucose (mg/dL) Random Glucose Calcium Phosphorus Magnesium Total Bilirubin AST ALT Alkaline Phosphatase Troponin I < 0.01 Total Protein Albumin Globulin Albumin/Globulin Ratio Triglycerides Cholesterol LDL Cholesterol Direct HDL Cholesterol Urine Color Yellow Urine Appearance Slight-cloudy Urine pH 7.0 Ur Specific [place] 1.010 Urine Protein Negative Urine Glucose (UA) Negative Urine Ketones Negative Urine Blood Negative Urine Nitrate Negative Urine Bilirubin Negative Urine Urobilinogen 0.2 Ur Leukocyte Esterase Large H Urine RBC None Urine WBC 2 - 5 Ur Epithelial Cells 0 - 2 03/27/18 04:10 WBC RBC Hgb Hct MCV MCH MCHC RDW Plt Count MPV Neut % (Auto) Lymph % (Auto) [place] % (Auto) Eos % (Auto) Baso % (Auto) Lymph # (Auto) [place] # (Auto) Eos # (Auto) Baso # (Auto) Absolute Neuts (auto) Sodium 139 Potassium 4.6 Chloride 103 Carbon Dioxide 27 Anion Gap 13 BUN 16 Creatinine 0.7 Est GFR ( Amer) > 60 Est GFR (Non-Af Amer) > 60 POC Glucose (mg/dL) Random Glucose 232 H Calcium 9.1 Phosphorus 4.0 Magnesium 2.3 H Total Bilirubin 0.5 AST 29 ALT 23 Alkaline Phosphatase 75 Troponin I < 0.01 Total Protein 7.4 Albumin 4.4 Globulin 3.0 Albumin/Globulin Ratio 1.5 Triglycerides 57 Cholesterol 149 LDL Cholesterol Direct 86 HDL Cholesterol 45 Urine Color Urine Appearance Urine pH Ur Specific [place] Urine Protein Urine Glucose (UA) Urine Ketones Urine Blood Urine Nitrate Urine Bilirubin Urine Urobilinogen Ur Leukocyte Esterase Urine RBC Urine WBC Ur Epithelial Cells Attending/Attestation - Attestation I have personally seen and examined this patient.: Yes I have fully participated in the care of the patient.: Yes I have reviewed all pertinent clinical information: Yes Notes (Text): 03/27/18 05:34 Patient was seen when she was in the ER. Medical record was reviewed. Agree with history , physical examination, assessment and plan.
[2018-03-26] MEDS ORDERED: Dextrose 50% SYRINGE Inj (50 ml) IV PRN (21:14)
--- NOTE | 2018-03-26 22:05 | CARD ---
APPROVED REPORT Date of service: 03/26/2018 EKG Measurement Heart [id number] <Conclusion> Normal sinus rhythm Possible Left atrial enlargement Non diagnostic Q waves leads 3 and AVF- cannot exclude old IMI CCR Abnormal ECG
[2018-03-26] MEDS ORDERED: guaiFENesin 100 mg/5 ml Syrup UD PO PRN (22:11)
[2018-03-26] MEDS: Insulin Lispro (humaLOG) MEDIUM Coverage SC SCH (22:35)
[2018-03-27 04:35] LABS: HEMOGLOBIN 13.6 g/dL (12.0-16.0); LYMPH # 0.9 (1.2-3.4); LYMPH % 31.8 % (22.0-35.0); MEAN CELL VOLUME 94.1 fl (80.0-105.0); MEAN CORPUSCULAR HEMOGLOBIN 31.1 pg (25.0-35.0); MEAN CORPUSCULAR HGB CONC 33.1 g/dl (31.0-37.0); MEAN PLATELET VOLUME 11.5 fl (7.0-11.0); MONO # 0.1 (0.1-0.6); MONO % 2.5 % (1.0-6.0); RBC 4.37 10^6/uL (3.5-6.1); RED CELL DISTRIBUTION WIDTH 12.5 % (11.5-14.5); WHITE BLOOD COUNT 2.8 10^3/uL (4.5-11.0)
[2018-03-27 04:56] LABS: ALB/GLOB RATIO 1.5 (1.1-1.8); ALBUMIN 4.4 g/dL (3.0-4.8); ALT/SGPT 23 U/L (7-56); AST/SGOT 29 U/L (14-36); BLOOD UREA NITROGEN 16 mg/dL (7-21); CALCIUM 9.1 mg/dL (8.4-10.5); GFR NON-AFRICAN AMERICAN > 60; HDL CHOLESTEROL 45 mg/dL (29-60)
[2018-03-27 05:06] LABS: LDL CHOLESTEROL 86 mg/dL (0-129)
[2018-03-27 05:07] LABS: TROPONIN I < 0.01 ng/mL
[2018-03-27] MEDS: Insulin Lispro (humaLOG) MEDIUM Coverage SC SCH ×4 (08:33→21:32)
[2018-03-27] MEDS: Pantoprazole 40 mg EC Tab PO SCH (08:33)
[2018-03-27] MEDS: Levothyroxine 88 MCG TAB PO SCH (09:35)
[2018-03-27] MEDS ORDERED: Sodium Chloride 0.9% 1,000 ML IV SCH (10:30)
--- NOTE | 2018-03-27 12:17 | CP.PCM.PN ---
<Sofia Kim - Last Filed: 03/27/18 18:56> Subjective - Date & Time of Evaluation Date of Evaluation: 03/27/18 Time of Evaluation: 12:14 - Subjective Subjective: INTERNAL MEDICINE PROGRESS NOTE FOR DR. SLAVA Kim PGY1 Pt seen and examined at bedside this am. No acute events overnight. Pt reports she feels a little dizzy when going from laying down to standing up. She also reports some ringing in the ears. She reports sick contacts at home, and recent cold symptoms. She denies numbness, tingling, weakness, dysphagia, vision changes. 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 Objective - Vital Signs/Intake and Output Vital Signs (last 24 hours): Temp Pulse Resp BP Pulse Ox 97.6 F 66 20 150/75 95 03/27/18 06:00 03/27/18 09:35 03/27/18 06:00 03/27/18 09:35 03/27/18 06:00 Intake and Output: 03/27/18 03/27/18 06:59 18:59 Intake Total 0 Output Total 0 Balance 0 - Medications Medications: Current Medications Amitriptyline HCl (Elavil) 10 mg PO DAILY [facility] Atorvastatin Calcium (Lipitor) 80 mg PO HS [facility] Last Admin: 03/26/18 22:34 Dose: 80 mg Calcium Carbonate (Oscal) 500 mg PO DAILY [facility] Last Admin: 03/27/18 09:35 Dose: 500 mg Clopidogrel Bisulfate (Plavix) 75 mg PO DAILY [facility] Last Admin: 03/27/18 09:35 Dose: 75 mg Dextrose (Dextrose 50% Inj) 0 ml IV STAT PRN; Protocol PRN Reason: Hypoglycemia Protocol Guaifenesin (Robitussin) 100 mg PO Q4H PRN PRN Reason: Cough Dextrose (Dextrose 5% In Water 1000 Ml) 1,000 mls @ 0 mls/hr IV .Q0M PRN; Protocol PRN Reason: Hypoglycemia Protocol Sodium Chloride (Sodium Chloride 0.9%) 1,000 mls @ 200 mls/hr IV .Q5H [facility] Stop: 03/27/18 15:29 Last Admin: 03/27/18 11:10 Dose: 200 mls/hr Insulin Human Lispro (Humalog Med) 0 units SC ACHS [facility]; Protocol Last Admin: 03/27/18 11:55 Dose: 3 units Levothyroxine Sodium (Synthroid) 88 mcg PO DAILY [facility] Last Admin: 03/27/18 09:35 Dose: 88 mcg Loratadine (Claritin) 10 mg PO DAILY [facility] Last Admin: 03/27/18 09:35 Dose: 10 mg Losartan Potassium (Cozaar) 25 mg PO DAILY [facility] Last Admin: 03/27/18 09:35 Dose: 25 mg Pantoprazole Sodium (Protonix Ec Tab) 40 mg PO ACB [facility] Last Admin: 03/27/18 08:33 Dose: 40 mg Sitagliptin Phosphate (Januvia) 100 mg PO DAILY [facility] Last Admin: 03/27/18 09:35 Dose: 100 mg - Labs Labs: 03/27/18 04:10 03/27/18 04:10 - Constitutional Appears: Well, Non-toxic, No Acute Distress - Head Exam Head Exam: NORMAL INSPECTION, NORMOCEPHALIC - Eye Exam Eye Exam: EOMI, Normal appearance - ENT Exam ENT Exam: Mucous Membranes Moist, Normal Exam - Neck Exam Neck Exam: Normal Inspection - Respiratory Exam Respiratory Exam: Clear to Ausculation Bilateral, NORMAL BREATHING PATTERN - Cardiovascular Exam Cardiovascular Exam: REGULAR RHYTHM, +S1, +S2. absent: Murmur - GI/Abdominal Exam GI & Abdominal Exam: Soft. absent: Tenderness - Extremities Exam Extremities Exam: Normal Inspection. 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 Likely 2/[address] Head: no acute intracranial findings. NIHSS: 0. s/p meclizine/decadron in ED Head CT: chronic encephalomalacia in the R parietal & occipital lobes. This is unchanged. No acute findings. carotid/vertebral US pending Cardio workup Echo: LVEF wnl. EKG: NSR Cardiology/Neurology consulted Hypothyroidism continue home levothyroxine HLD continue home atorvastatin Hx of CVA continue home aspirin/plavix Osteopenia continue home calcium carbonate GERD continue home pantoprazole HTN hold losartan since + orthostatics DM A1C: 7.1 continue sliding scale continue sitagliptin Dispo: PT/OT/Speech eval Case seen, examined and discussed with attending physician, Dr. Slava Kim PGY1 <Victor M Pedersen - Last Filed: 03/28/18 18:04> Objective - Vital Signs/Intake and Output Vital Signs (last 24 hours): Temp Pulse Resp BP Pulse Ox 98.0 F 67 18 145/83 99 03/28/18 06:00 03/28/18 10:00 03/28/18 06:00 03/28/18 06:00 03/28/18 06:00 Intake and Output: 03/28/18 03/28/18 06:59 18:59 Intake Total 2140 770 Balance 2140 770 - Labs Labs: 03/28/18 07:00 03/28/18 07:00 Attending/Attestation - Attestation I have personally seen and examined this patient.: Yes I have fully participated in the care of the patient.: Yes I have reviewed all pertinent clinical information, including history, physical exam and plan: Yes Notes (Text): 03/28/18 17:59 attending note; patient seen and examined with Resident. Patient is alert and awake, Complaining of mild dizziness. Denies any chest pain, shortness of breath. Denies any abdominal pain, nausea, vomiting. denies any fevers, chills. Complaining of mild tinnitus and fullness in the ear. resolving URI sympotoms. 1.vertigo; mostly secondary to labyrinthitis. Patient also has mild orthostatic hypotension. Started on IV fluids. Monitor closely. Hold Cozaar CT Head shows no acute intracranial findings. NIHSS: 0. s/p meclizine/decadron in ED Head CT: chronic encephalomalacia in the R parietal & occipital lobes. This is unchanged. No acute findings. 2.Hypothyroidism; continue home levothyroxine 3.hyperlipidemia; continue Lipitor 4. history of CVA;continue home aspirin/plavix 5.Osteopenia; continue home calcium carbonate 6.GERD;continue home pantoprazole 7.HTN; hold losartan since + orthostatics 8. diabetes; A1C: 7.1.continue sitagliptin physical therapy evaluation requested. Monitor closely. Upon discharge the patient will follow up with PMD Dr. Parra. 03/28/18 18:02
--- NOTE | 2018-03-27 13:54 | CP.PCM.PCO ---
Physician Communication Note - Physician Communication Note Physician Communication Note: pend, neuro and cardio consult, CT head old watershed infarct, c/o dizzines
--- NOTE | 2018-03-27 14:01 | CARD ---
APPROVED REPORT Date of service: 03/27/2018 EXAM: Two-dimensional and M-mode echocardiogram with Doppler and color Doppler. INDICATION DIZZINESS R/O STRUCTURAL HEART DISEASE 2D DIMENSIONS Left Atrium (2D)3.5 (1.6-4.0cm)IVSd1.4 (0.7-1.1cm) LVDd3.4 (3.9-5.9cm)PWd1.3 (0.7-1.1cm) LVDs2.2 (2.5-4.0cm)FS (%) 33.3 % LVEF (%)63.1 (>50%) M-Mode DIMENSIONS Aortic Root2.00 (2.2-3.7cm)Aortic Cusp Exc.1.40 (1.5-2.0cm) Aortic Valve AoV Peak Yqplddgj155.0cm/Neva Peak GR.9mmHg Mitral Valve MV E Uqpdulqa02.7cm/sMV A Ydxdsntd46.1cm/sE/A ratio0.5 TDI E/Lateral E'0.0E/Medial E'0.0 Tricuspid Valve TR Peak [id number]/sRAP [id number] Peak Gr.16mmHg [id number] LEFT VENTRICLE The left ventricle is normal size. There is mild concentric left ventricular hypertrophy. The left ventricular function is normal. The left ventricular ejection fraction is within the normal range. Ej.Fr: 63%. Transmitral Doppler flow pattern is Grade III-reversible restrictive diastolic dysfunction. RIGHT VENTRICLE The right ventricle is normal size. The right ventricular systolic function is normal. ATRIA The left atrium size is normal. The right atrium size is normal. AORTIC VALVE The aortic valve is normal in structure. MITRAL VALVE The mitral valve is normal in structure. Mitral regurgitation is mild. TRICUSPID VALVE The tricuspid valve is normal in structure. There is trace tricuspid regurgitation. PERICARDIAL EFFUSION There is no pericardial effusion. <Conclusion> The left ventricle is normal size. There is mild concentric left ventricular hypertrophy. The left ventricular function is normal. The left ventricular ejection fraction is within the normal range. Ej.Fr: 63%. Transmitral Doppler flow pattern is Grade III-reversible restrictive diastolic dysfunction. The right ventricle is normal size. The right ventricular systolic function is normal. The left atrium size is normal. The right atrium size is normal. The aortic valve is normal in structure. Leaflets are thickened. The mitral valve is normal in structure. Leaflets are thickened. Mitral regurgitation is mild. The tricuspid valve is normal in structure. There is trace tricuspid regurgitation. Trace Pulmonic Regurge.There is no pericardial effusion.
--- NOTE | 2018-03-27 15:30 | CT ---
Date of service: 03/27/2018 PROCEDURE: CT HEAD WITHOUT CONTRAST. HISTORY: r/o cva COMPARISON: 03/26/2018 TECHNIQUE: Axial computed tomography images were obtained through the head/brain without intravenous contrast. Radiation dose: Total exam DLP = 942.88 mGy-cm. This CT exam was performed using one or more of the following dose reduction techniques: Automated exposure control, adjustment of the mA and/or kV according to patient size, and/or use of iterative reconstruction technique. FINDINGS: HEMORRHAGE: No intracranial hemorrhage. BRAIN: No mass effect or edema. There is chronic encephalomalacia in the right parietal and occipital lobes. This is unchanged. There are no acute findings VENTRICLES: Unremarkable. No hydrocephalus. CALVARIUM: Unremarkable. PARANASAL SINUSES: Unremarkable as visualized. No significant inflammatory changes. MASTOID AIR CELLS: Unremarkable as visualized. No inflammatory changes. OTHER FINDINGS: None. IMPRESSION: No acute intracranial findings
--- NOTE | 2018-03-27 16:55 | CARD ---
APPROVED REPORT Date of service: 03/27/2018 EKG Measurement Heart [id number] <Conclusion> Normal sinus rhythm Inferior infarct, age undetermined Abnormal ECG
--- NOTE | 2018-03-27 18:51 | CON ---
DATE: 03/27/2018 REASON FOR CONSULTATION AND FOLLOWUP: Dizziness and cardiac evaluation. BRIEF CLINICAL HISTORY: A 67-year-old female with past medical history of diabetes, hypertension, hyperlipidemia, hypothyroidism, osteoporosis, breast cyst, history of CVA most recently in May 2017, history of rheumatoid arthritis, present complaint of dizziness. Denies any chest pain, denies any shortness of breath, denies any palpitation. PAST MEDICAL HISTORY: Significant for diabetes, hypertension, hyperlipidemia, hypothyroidism, osteoporosis, history of breast cyst, history of CVA twice, history of rheumatoid arthritis. PAST SURGICAL HISTORY: Significant for cholecystectomy many years ago 20 or 30 years ago, varicose veins stripping. ALLERGIES: DENIES ANY HISTORY OF ALLERGY. CURRENT MEDICATIONS: The patient is taking at home vitamin B6, metformin 500 mg daily, irbesartan 75 mg daily, amitriptyline 10 mg daily, Crestor 20 mg daily, omeprazole 40 mg daily, Januvia 100 mg daily, Synthroid 88 mcg daily. FAMILY HISTORY: Significant for motor vehicle accident. No history of coronary artery disease. Her mom has a history of a stroke in the past. SOCIAL HISTORY: Ex-smoker quit 4 years ago, denies any history of alcohol abuse. RECENT CARDIAC WORKUP: As follows; the patient had a stress test in 07/2015, normal myocardial perfusion study, no reversible ischemia, ejection fraction of 88%. The patient had a repeat stress test on 10/09/2017, that showed normal myocardial perfusion study, ejection fraction of 84%, when comparison made from 09/08/2015, no significant change noted. EKG in 03/18/1999, normal sinus, Q-wave in inferior lead. No change in the recent EKG 03/26/2018, that is yesterday, no significant change. REVIEW OF SYSTEMS: As per HPI. PHYSICAL EXAMINATION GENERAL: As follows; height of the patient is 5 feet 1 inches, weight of the patient 180 pounds, and body mass index 22.13 kg/m2. VITAL SIGNS: Temperature afebrile, heart rate 67, and blood pressure 130/72. HEENT: PERRLA. Extraocular muscles intact. NECK: Supple. No carotid bruit or thyromegaly. CHEST: Clear to auscultation. HEART: S1 and S2 regular. ABDOMEN: Soft. EXTREMITIES: Clubbing and cyanosis negative. LABORATORY DATA: Blood workup as follows; WBC 2.8, hemoglobin 13.6, hematocrit 41.1, and platelet count of 139. Chemistry shows sodium 139, potassium 4.6, chloride of 103, carbon dioxide 27, anion gap of 13, BUN 16, and creatinine 0.7, troponin is 0.01. IMPRESSION: A 67-year-old female with past medical history significant for hypertension, hyperlipidemia, diabetes, hypothyroidism, osteoporosis, history of cholecystectomy, history of cerebrovascular accident in the past, admitted with dizziness. The patient's recent stress test 09/2017 essentially negative. RECOMMENDATIONS: We will do orthostatic hypertension to rule out any orthostatic hypertension, an echo to rule out any structural heart disease. The patient is being seen by neurologist and we will order also bilateral carotid duplex. Further recommendation in the hospital course. We will follow with you with TSH as well as hemoglobin A1c. The patient has a CAT scan of the head done. No acute intracranial pathology noted. We will check also for orthostatic hypertension. Thank you Dr. Russo for providing us the opportunity in taking care of the patient, Rabia Crews. Markie Will MD
--- NOTE | 2018-03-27 21:06 | CON ---
DATE: 03/27/2018 HISTORY OF PRESENT ILLNESS: This is a 67-year-old female with past medical history of hypertension, stroke, diabetes, hyperlipidemia, hypothyroidism, came to the emergency room with dizziness. The patient has been experiencing dizziness which was worsening with the movement and felt off balanced and at the bedside, denies any numbness, tingling, and only experienced vertigo and called to evaluate the patient. PAST MEDICAL HISTORY: As above. SOCIAL HISTORY: Does not smoke. Does not drink. ALLERGIES: NO KNOWN DRUG ALLERGIES. HOME MEDICATIONS: Losartan, simvastatin, aspirin, glyburide, metformin, Synthroid, and Clonazepam. REVIEW OF SYSTEMS: Ten point review of system was negative. PHYSICAL EXAMINATION: HEENT: Normocephalic and atraumatic. NECK: Supple. NEUROLOGIC: Alert, awake, oriented x3. No aphasia. Cranial nerves II-XII intact. Pupils equal reactive to light. EOM intact. Visual field full. No facial asymmetry. Tongue midline. Motor examination; moves all the extremities equally. Tone normal. Deep tendon reflex is 1+. Both front toes are downgoing. Sensory appears intact. Cerebellar gait normal. DIAGNOSTIC DATA: CAT scan of the head was done, shows report is negative. ASSESSMENT AND PLAN: Continue present management. The patient is on meclizine. We will follow up. Yuval Moreno MD
[2018-03-28 00:16] VITALS: TEMP 98
[2018-03-28 05:31] VITALS: BP 145/83; PULSE 67; RESP 18; O2SAT 99
--- NOTE | 2018-03-28 07:19 | CP.PCM.PN ---
Subjective - Date & Time of Evaluation Date of Evaluation: 03/28/18 Time of Evaluation: 06:25 - Subjective Subjective: Awake, alert, no distress Reason for consultation and follow up: Cardiac evaluation of dizziness, history of hypertension, hyperlipidemia, hypothyroidism, CVA x 2. Seen and examined by me and Dr. Cheung Objective - Vital Signs/Intake and Output Vital Signs (last 24 hours): Temp Pulse Resp BP Pulse Ox 98.0 F 67 18 145/83 99 03/28/18 06:00 03/28/18 06:00 03/28/18 06:00 03/28/18 06:00 03/28/18 06:00 Intake and Output: 03/28/18 03/28/18 06:59 18:59 Intake Total 2140 Balance 2140 - Medications Medications: Current Medications Amitriptyline HCl (Elavil) 10 mg PO DAILY [facility] Atorvastatin Calcium (Lipitor) 80 mg PO HS [facility] Last Admin: 03/27/18 21:33 Dose: 80 mg Calcium Carbonate (Oscal) 500 mg PO DAILY [facility] Last Admin: 03/27/18 09:35 Dose: 500 mg Clopidogrel Bisulfate (Plavix) 75 mg PO DAILY [facility] Last Admin: 03/27/18 09:35 Dose: 75 mg Dextrose (Dextrose 50% Inj) 0 ml IV STAT PRN; Protocol PRN Reason: Hypoglycemia Protocol Guaifenesin (Robitussin) 100 mg PO Q4H PRN PRN Reason: Cough Heparin Sodium (Porcine) (Heparin) 5,000 units SC Q12 [facility]; Protocol Last Admin: 03/27/18 21:32 Dose: 5,000 units Dextrose (Dextrose 5% In Water 1000 Ml) 1,000 mls @ 0 mls/hr IV .Q0M PRN; Protocol PRN Reason: Hypoglycemia Protocol Insulin Human Lispro (Humalog Med) 0 units SC ACHS [facility]; Protocol Last Admin: 03/27/18 21:32 Dose: Not Given Levothyroxine Sodium (Synthroid) 88 mcg PO DAILY [facility] Last Admin: 03/27/18 09:35 Dose: 88 mcg Loratadine (Claritin) 10 mg PO DAILY [facility] Last Admin: 03/27/18 09:35 Dose: 10 mg Losartan Potassium (Cozaar) 25 mg PO DAILY [facility] Last Admin: 03/27/18 09:35 Dose: 25 mg Pantoprazole Sodium (Protonix Ec Tab) 40 mg PO ACB [facility] Last Admin: 03/27/18 08:33 Dose: 40 mg Sitagliptin Phosphate (Januvia) 100 mg PO DAILY [facility] Last Admin: 03/27/18 09:35 Dose: 100 mg - Labs Labs: 03/27/18 04:10 03/27/18 04:10 - Constitutional Appears: Non-toxic, No Acute Distress - Head Exam Head Exam: NORMAL INSPECTION, NORMOCEPHALIC - Eye Exam Eye Exam: Normal appearance Pupil Exam: NORMAL ACCOMODATION - ENT Exam ENT Exam: Mucous Membranes Moist, Normal Exam - Respiratory Exam Respiratory Exam: Decreased Breath Sounds, Clear to Ausculation Bilateral, NORMAL BREATHING PATTERN - Cardiovascular Exam Cardiovascular Exam: REGULAR RHYTHM, +S1, +S2 Additional comments: Telemetry NSR 70's - GI/Abdominal Exam GI & Abdominal Exam: Soft, Normal Bowel Sounds - Extremities Exam Extremities Exam: Full ROM, Normal Capillary Refill - Neurological Exam Neurological Exam: Alert, Awake, Oriented x3 - Psychiatric Exam Psychiatric exam: Normal Affect, Normal Mood - Skin Skin Exam: Dry, Normal Color, Warm Assessment and Plan - Assessment and Plan (Free Text) Assessment: A 67 year old female who came in to the ER due to worsening dizziness. History of hypertension, CVAx 2 (most recent May 2017),diabetes, hyperlipidemia, hypothyroidism, osteopenia, breast cyst,rheumatoid arthritis, cholecystectomy many years ago, varicose vein stripping. Had stress test 10/09/17 with normal results compared to previous test no changes. Echo done yesterday LVEF 63%, transmitral doppler flow Grade III reversible restrictive diastolic dysfunction, Mild MR, trace TR. CT of head done no bleeding, chronic encephalomalacia inthe right parietal and occipital lobes. Neuro on consult. Orthostatic hypotension. Will start IV fluid. Carotid studies pending result. Plan: Denies chest pain Heart rate and blood pressure controlled Orthostatic hypotension Lying BP 150/75 Sitting BP 157/78 Standing 127/75 Will start IV fluids NSS at 50 cc/hr On Lipitor 80 mg daily,Plavix 75 mg daily, Synthroid 88 mcg daily Cozaar 25 mg daily Continue current treatment Continue current medications Carotid studies pending results Will follow up Plan and treatment discussed with Dr. Cheung
[2018-03-28] MEDS ORDERED: Sodium Chloride 0.9% 1,000 ML IV SCH (07:45)
[2018-03-28 08:00] LABS: ALB/GLOB RATIO 1.4 (1.1-1.8); ALT/SGPT 21 U/L (7-56); AST/SGOT 20 U/L (14-36); BLOOD UREA NITROGEN 18 mg/dL (7-21); CALCIUM 8.6 mg/dL (8.4-10.5); GFR NON-AFRICAN AMERICAN > 60
[2018-03-28] MEDS: Insulin Lispro (humaLOG) MEDIUM Coverage SC SCH ×2 (08:12→12:00)
[2018-03-28] MEDS: Pantoprazole 40 mg EC Tab PO SCH (08:22)
[2018-03-28 08:52] LABS: BASO # 0.01 K/mm3 (0.0-2.0); BASO % 0.2 % (0.0-3.0); EOS # 0.1 (0.0-0.7); EOS % 1.2 % (1.5-5.0); HEMOGLOBIN 12.6 g/dL (12.0-16.0); LYMPH # 2.8 (1.2-3.4); LYMPH % 53.9 % (22.0-35.0); MEAN CELL VOLUME 95.3 fl (80.0-105.0); MEAN CORPUSCULAR HGB CONC 32.6 g/dl (31.0-37.0); MEAN PLATELET VOLUME 11.6 fl (7.0-11.0); MONO # 0.4 (0.1-0.6); MONO % 8.1 % (1.0-6.0); RBC 4.06 10^6/uL (3.5-6.1); RED CELL DISTRIBUTION WIDTH 12.9 % (11.5-14.5); WHITE BLOOD COUNT 5.2 10^3/uL (4.5-11.0)
[2018-03-28] MEDS: Levothyroxine 88 MCG TAB PO SCH (09:15)
--- NOTE | 2018-03-28 21:37 | CP.PCM.DIS ---
<Sofia Kim - Last Filed: 03/28/18 21:32> Provider - Provider Date of Admission: 03/26/18 19:48 Attending physician: Victor M Pedersen MD Primary care physician: Tru Parra MD Consults: 03/26/18 19:48 Consult [Physician Consult] Stat Comment: Consulting Provider: Yuval Moreno Consulting Physician: Yuval Moreno Reason for Consult: dizziness 03/26/18 21:02 Cardiology Consult Routine Comment: Consulting Provider: Markie Cheung Consulting Physician: Markie Cheung Reason for Consult: Dizziness Time Spent in preparation of Discharge (in minutes): 45 Diagnosis - Discharge Diagnosis (1) Orthostatic hypotension Status: Resolved (2) Dizziness Status: Resolved Hospital Course - Lab Results Lab Results: Micro Results 03/26/18 22:25 Urine,Clean Catch Urine Culture - Final Gram Positive Cocci Most Recent Lab Values WBC 5.2 10^3/uL (4.5-11.0) D 03/28/18 07:00 RBC 4.06 10^6/uL (3.5-6.1) 03/28/18 07:00 Hgb 12.6 g/dL (12.0-16.0) 03/28/18 07:00 Hct 38.7 % (36.0-48.0) 03/28/18 07:00 MCV 95.3 fl (80.0-105.0) 03/28/18 07:00 MCH 31.0 pg (25.0-35.0) 03/28/18 07:00 MCHC 32.6 g/dl (31.0-37.0) 03/28/18 07:00 RDW 12.9 % (11.5-14.5) 03/28/18 07:00 Plt Count 149 10^3/uL (120.0-450.0) 03/28/18 07:00 MPV 11.6 fl (7.0-11.0) H 03/28/18 07:00 Neut % (Auto) 36.6 % (50.0-68.0) L 03/28/18 07:00 Lymph % (Auto) 53.9 % (22.0-35.0) H 03/28/18 07:00 [place] % (Auto) 8.1 % (1.0-6.0) H 03/28/18 07:00 Eos % (Auto) 1.2 % (1.5-5.0) L 03/28/18 07:00 Baso % (Auto) 0.2 % (0.0-3.0) 03/28/18 07:00 Lymph # (Auto) 2.8 (1.2-3.4) 03/28/18 07:00 [place] # (Auto) 0.4 (0.1-0.6) 03/28/18 07:00 Eos # (Auto) 0.1 (0.0-0.7) 03/28/18 07:00 Baso # (Auto) 0.01 K/mm3 (0.0-2.0) 03/28/18 07:00 Absolute Neuts (auto) 1.90 (1.4-6.5) 03/28/18 07:00 Sodium 140 mmol/L (132-148) 03/28/18 07:00 Potassium 4.3 mmol/L (3.6-5.0) 03/28/18 07:00 Chloride 106 mmol/L (98-107) 03/28/18 07:00 Carbon Dioxide 28 mmol/L (21-33) 03/28/18 07:00 Anion Gap 10 (10-20) 03/28/18 07:00 BUN 18 mg/dL (7-21) 03/28/18 07:00 Creatinine 0.8 mg/dl (0.7-1.2) 03/28/18 07:00 Est GFR ( Amer) > 60 03/28/18 07:00 Est GFR (Non-Af Amer) > 60 03/28/18 07:00 POC Glucose (mg/dL) 193 mg/dL (65-110) H 03/26/18 22:33 Random Glucose 148 mg/dL (70-110) H 03/28/18 07:00 Hemoglobin A1c 7.3 % (4.2-6.5) H D 03/27/18 04:10 Calcium 8.6 mg/dL (8.4-10.5) 03/28/18 07:00 Phosphorus 4.0 mg/dL (2.5-4.5) 03/27/18 04:10 Magnesium 2.3 mg/dL (1.7-2.2) H 03/27/18 04:10 Total Bilirubin 0.5 mg/dL (0.2-1.3) 03/28/18 07:00 AST 20 U/L (14-36) 03/28/18 07:00 ALT 21 U/L (7-56) 03/28/18 07:00 Alkaline Phosphatase 63 U/L (38-126) 03/28/18 07:00 Troponin I < 0.01 ng/mL 03/27/18 04:10 Total Protein 6.7 g/dL (5.8-8.3) 03/28/18 07:00 Albumin 4.0 g/dL (3.0-4.8) 03/28/18 07:00 Globulin 2.8 gm/dL 03/28/18 07:00 Albumin/Globulin Ratio 1.4 (1.1-1.8) 03/28/18 07:00 Triglycerides 57 mg/dL (35-160) 03/27/18 04:10 Cholesterol 149 mg/dL (130-200) 03/27/18 04:10 LDL Cholesterol Direct 86 mg/dL (0-129) 03/27/18 04:10 HDL Cholesterol 45 mg/dL (29-60) 03/27/18 04:10 TSH 3rd Generation 2.74 mIU/mL (0.46-4.68) 03/28/18 07:00 Urine Color Yellow (YELLOW) 03/26/18 20:21 Urine Appearance Slight-cloudy (CLEAR) 03/26/18 20:21 Urine pH 7.0 (4.7-8.0) 03/26/18 20:21 Ur Specific [place] 1.010 (1.005-1.035) 03/26/18 20:21 Urine Protein Negative mg/dL (<30 mg/dL) 03/26/18 20:21 Urine Glucose (UA) Negative mg/dL (NEGATIVE) 03/26/18 20:21 Urine Ketones Negative mg/dL (NEGATIVE) 03/26/18 20:21 Urine Blood Negative (NEGATIVE) 03/26/18 20:21 Urine Nitrate Negative (NEGATIVE) 03/26/18 20:21 Urine Bilirubin Negative (NEGATIVE) 03/26/18 20:21 Urine Urobilinogen 0.2 E.U./dL (<1 E.U./dL) 03/26/18 20:21 Ur Leukocyte Esterase Large Rakesh/uL (NEGATIVE) H 03/26/18 20:21 Urine RBC None /hpf (0-2) 03/26/18 20:21 Urine WBC 2 - 5 /hpf (0-6) 03/26/18 20:21 Ur Epithelial Cells 0 - 2 /hpf (0-5) 03/26/18 20:21 - Hospital Course Hospital Course: Upon admission: 67 y o female with PMhx DM2, HLD, hypothyroidism, osteopenia, breast cyst, CVA x2 (most recently in May 2017), RA, who presents with c/o dizziness that has been worsening for the past day. States that she has been having URI symptoms for the past 3 days, including cough, sore throat and wheezing; noted today after she coughed she got dizzy and felt like she was off balance. States this has happened before in the past when she had URI symptoms. Also admits to dizziness when rising up to stand from a seated position. Also reports of hx of vertigo in the past, pt takes Meclizine at home as needed for symptoms. Denies headache, vision changes, chest pain, sob, n/v/d/c, abd pain, urinary complaints, numbness/tingling in extremities, weakness or other symptoms. Hospital Course: Head CT revealed no acute abnormalities. Stable watershed infarct posterior right parietal occiptal region. Echocardiogram: "LV normal size. LVEF 63%. RV systolic function normal." Pt had mild orthostatic hypotension, pt was started on mild IVF. Pt was also started on meclizine. Pt was evaluated by cardiology and neurology for cardiogenic causes. Pt reported recental viral illness, symptoms related to viral labrynthitis. Upon Discharge: Pt is feeling much better. Vital signs stable. Pt instructed on medication compliance, outpatient followup and to return to ED if symptoms return or new symptoms present. Discharge Exam - Head Exam Head Exam: NORMAL INSPECTION, NORMOCEPHALIC - Eye Exam Eye Exam: EOMI, Normal appearance - ENT Exam ENT Exam: Mucous Membranes Moist, Normal Exam - Neck Exam Neck exam: Normal Inspection - Respiratory Exam Respiratory Exam: NORMAL BREATHING PATTERN, UNREMARKABLE - Cardiovascular Exam Cardiovascular Exam: REGULAR RHYTHM, +S1, +S2 - GI/Abdominal Exam GI & Abdominal Exam: Soft, Unremarkable. absent: Tenderness - Extremities Exam Extremities exam: normal inspection - Back Exam Back exam: NORMAL INSPECTION - Neurological Exam Neurological exam: Alert, Oriented x3 - Psychiatric Exam Psychiatric exam: Normal Affect, Normal Mood - Skin Skin Exam: Dry, Intact, Warm Discharge Plan - Discharge Medications Prescriptions: Aspirin [Adult Aspirin] 81 mg PO DAILY #14 tablet. Meclizine HCl [[employer]ram 2] 25 mg PO BID #10 tablet - Follow Up Plan Condition: FAIR Disposition: HOME/ ROUTINE Instructions: Vertigo (a Type of Dizziness) (DC), Vasovagal Response (DC) Additional Instructions: Please follow up with your primary care doctor, Dr. Parra, within 3-5 days of discharge Please follow up with your neurologist, Dr. Moreno, within 3-5 days of discharge Please follow up with your coat maker, Dr. Will, within 3-5 days of discharge Please START the following medication Aspirin 81mg daily Meclizine 25mg twice a day Pleases continue taking the medications that you were taking previously. Please discuss all your medications with your doctors If your symptoms return, or you experience new symptoms, please return to the nearest emergency room Referrals: Markie Will MD [Staff Provider] - Tru Parra MD [Primary Care Provider] - Yuval Moreno MD [Staff Provider] - <Victor M Pedersen - Last Filed: 03/29/18 11:43> Provider - Provider Date of Admission: 03/26/18 19:48 Attending physician: Victor M Pedersen MD Primary care physician: Tru Parra MD Consults: 03/26/18 19:48 Consult [Physician Consult] Stat Comment: Consulting Provider: Yuval Moreno Consulting Physician: Yuval Moreno Reason for Consult: dizziness 03/26/18 21:02 Cardiology Consult Routine Comment: Consulting Provider: Markie Cheung Consulting Physician: Markie Cheung Reason for Consult: Dizziness Hospital Course - Lab Results Lab Results: Micro Results 03/26/18 22:25 Urine,Clean Catch Urine Culture - Final Gram Positive Cocci Most Recent Lab Values WBC 5.2 10^3/uL (4.5-11.0) D 03/28/18 07:00 RBC 4.06 10^6/uL (3.5-6.1) 03/28/18 07:00 Hgb 12.6 g/dL (12.0-16.0) 03/28/18 07:00 Hct 38.7 % (36.0-48.0) 03/28/18 07:00 MCV 95.3 fl (80.0-105.0) 03/28/18 07:00 MCH 31.0 pg (25.0-35.0) 03/28/18 07:00 MCHC 32.6 g/dl (31.0-37.0) 03/28/18 07:00 RDW 12.9 % (11.5-14.5) 03/28/18 07:00 Plt Count 149 10^3/uL (120.0-450.0) 03/28/18 07:00 MPV 11.6 fl (7.0-11.0) H 03/28/18 07:00 Neut % (Auto) 36.6 % (50.0-68.0) L 03/28/18 07:00 Lymph % (Auto) 53.9 % (22.0-35.0) H 03/28/18 07:00 [place] % (Auto) 8.1 % (1.0-6.0) H 03/28/18 07:00 Eos % (Auto) 1.2 % (1.5-5.0) L 03/28/18 07:00 Baso % (Auto) 0.2 % (0.0-3.0) 03/28/18 07:00 Lymph # (Auto) 2.8 (1.2-3.4) 03/28/18 07:00 [place] # (Auto) 0.4 (0.1-0.6) 03/28/18 07:00 Eos # (Auto) 0.1 (0.0-0.7) 03/28/18 07:00 Baso # (Auto) 0.01 K/mm3 (0.0-2.0) 03/28/18 07:00 Absolute Neuts (auto) 1.90 (1.4-6.5) 03/28/18 07:00 Sodium 140 mmol/L (132-148) 03/28/18 07:00 Potassium 4.3 mmol/L (3.6-5.0) 03/28/18 07:00 Chloride 106 mmol/L (98-107) 03/28/18 07:00 Carbon Dioxide 28 mmol/L (21-33) 03/28/18 07:00 Anion Gap 10 (10-20) 03/28/18 07:00 BUN 18 mg/dL (7-21) 03/28/18 07:00 Creatinine 0.8 mg/dl (0.7-1.2) 03/28/18 07:00 Est GFR ( Amer) > 60 03/28/18 07:00 Est GFR (Non-Af Amer) > 60 03/28/18 07:00 POC Glucose (mg/dL) 193 mg/dL (65-110) H 03/26/18 22:33 Random Glucose 148 mg/dL (70-110) H 03/28/18 07:00 Hemoglobin A1c 7.3 % (4.2-6.5) H D 03/27/18 04:10 Calcium 8.6 mg/dL (8.4-10.5) 03/28/18 07:00 Phosphorus 4.0 mg/dL (2.5-4.5) 03/27/18 04:10 Magnesium 2.3 mg/dL (1.7-2.2) H 03/27/18 04:10 Total Bilirubin 0.5 mg/dL (0.2-1.3) 03/28/18 07:00 AST 20 U/L (14-36) 03/28/18 07:00 ALT 21 U/L (7-56) 03/28/18 07:00 Alkaline Phosphatase 63 U/L (38-126) 03/28/18 07:00 Troponin I < 0.01 ng/mL 03/27/18 04:10 Total Protein 6.7 g/dL (5.8-8.3) 03/28/18 07:00 Albumin 4.0 g/dL (3.0-4.8) 03/28/18 07:00 Globulin 2.8 gm/dL 03/28/18 07:00 Albumin/Globulin Ratio 1.4 (1.1-1.8) 03/28/18 07:00 Triglycerides 57 mg/dL (35-160) 03/27/18 04:10 Cholesterol 149 mg/dL (130-200) 03/27/18 04:10 LDL Cholesterol Direct 86 mg/dL (0-129) 03/27/18 04:10 HDL Cholesterol 45 mg/dL (29-60) 03/27/18 04:10 TSH 3rd Generation 2.74 mIU/mL (0.46-4.68) 03/28/18 07:00 Urine Color Yellow (YELLOW) 03/26/18 20:21 Urine Appearance Slight-cloudy (CLEAR) 03/26/18 20:21 Urine pH 7.0 (4.7-8.0) 03/26/18 20:21 Ur Specific [place] 1.010 (1.005-1.035) 03/26/18 20:21 Urine Protein Negative mg/dL (<30 mg/dL) 03/26/18 20:21 Urine Glucose (UA) Negative mg/dL (NEGATIVE) 03/26/18 20:21 Urine Ketones Negative mg/dL (NEGATIVE) 03/26/18 20:21 Urine Blood Negative (NEGATIVE) 03/26/18 20:21 Urine Nitrate Negative (NEGATIVE) 03/26/18 20:21 Urine Bilirubin Negative (NEGATIVE) 03/26/18 20:21 Urine Urobilinogen 0.2 E.U./dL (<1 E.U./dL) 03/26/18 20:21 Ur Leukocyte Esterase Large Rakesh/uL (NEGATIVE) H 03/26/18 20:21 Urine RBC None /hpf (0-2) 03/26/18 20:21 Urine WBC 2 - 5 /hpf (0-6) 03/26/18 20:21 Ur Epithelial Cells 0 - 2 /hpf (0-5) 03/26/18 20:21 Attending/Attestation - Attestation I have personally seen and examined this patient.: Yes I have fully participated in the care of the patient.: Yes I have reviewed all pertinent clinical information, including history, physical exam and plan: Yes Notes (Text): 03/29/18 11:42 attending note; patient seen and examined with Resident. Patient is alert and awake, denies dizziness. Denies any chest pain, shortness of breath. Denies any abdominal pain, nausea, vomiting. denies any fevers, chills. 1.vertigo; mostly secondary to labyrinthitis. Patient also has mild orthostatic hypotension. treated with IV fluids. currently BP is normal. CT Head shows no acute intracranial findings. NIHSS: 0. s/p meclizine/decadron in ED Head CT: chronic encephalomalacia in the R parietal & occipital lobes. This is unchanged. No acute findings. 2.Hypothyroidism; continue home levothyroxine 3.hyperlipidemia; continue Lipitor 4. history of CVA;continue home aspirin/plavix 5.Osteopenia; continue home calcium carbonate 6.GERD;continue home pantoprazole 7.HTN; hold losartan since + orthostatics 8. diabetes; A1C: 7.1.continue sitagliptin physical therapy evaluation appreciated. discharge home. Upon discharge the patient will follow up with PMD Dr. Parra.
--- NOTE | 2018-03-30 18:58 | US ---
PROCEDURE: Bilateral carotid artery duplex ultrasound HISTORY: Carotid stenosis PHYSICIAN(S): Zheng Delvalle MD. TECHNIQUE: Duplex sonography and color-flow Doppler were used to evaluate the carotid bifurcations and limited segments of the vertebral arteries bilaterally. FINDINGS: There is mild smooth hypoechoic plaque noted at the carotid bifurcations bilaterally. The peak systolic velocity in the proximal right internal carotid artery is 56 cm/sec. This corresponds to a 20 to 39% proximal right ICA stenosis. Normal systolic velocities are noted in the proximal right external carotid artery. There is antegrade flow in the right vertebral artery. The peak systolic velocity in the proximal left internal carotid artery is 66 cm/sec. This corresponds to a 20 to 39% proximal left ICA stenosis. Normal systolic velocities are noted in the proximal left external carotid artery. There is antegrade flow in the left vertebral artery. IMPRESSION: 1. Bilateral 20-39% proximal ICA stenoses. 2. Antegrade flow in both vertebral arteries.
== END 2018-03-28 15:48 | disposition home or self-care (01) ==
LOC: ED 14:43 → ERH 19:48 → 2RNO 23:41
PROVIDERS: ADMIT Internal Medicine; ATTEND Internal Medicine
DX: H83.09 Labyrinthitis, unspecified ear (principal); I95.1 Orthostatic hypotension; G93.89 Other specified disorders of brain; E03.9 Hypothyroidism, unspecified; E11.9 Type 2 diabetes mellitus without complications; E78.5 Hyperlipidemia, unspecified; I10 Essential (primary) hypertension; K21.9 Gastro-esophageal reflux disease without esophagitis; M06.9 Rheumatoid arthritis, unspecified; M81.0 Age-related osteoporosis without current pathological fracture; Z87.891 Personal history of nicotine dependence; Z86.73 Personal history of transient ischemic attack (TIA), and cerebral infarction without residual deficits; Z79.84 Long term (current) use of oral hypoglycemic drugs; Z79.82 Long term (current) use of aspirin
CPT/HCPCS: 36415; 70450; 80053; 80061; 81001; 82948; 83036; 83735; 84100; 84443; 84484; 85025; 87086; 93005; 93306; 93880; 96372; 96374; 97116; 97161; 99285; G0378; G8978; G8979; J1100; J1644; J7030